=== PATIENT | male | born 1970 | race Hispanic/Latino ===

== ENCOUNTER 2016-05-19 21:42 | Emergency (ER) | payer OTHER ==
[~2016-05-19 21:42] MED LIST: ACET65TA OR; ADVI200C5 PO; AKWASOL OP; AKWASOL OU; ALBU17IN INH; AMBI5TAB PO; ASPI81TA85 PO; BACIOIN20 TOP; BENZ5GEL13 TOP; BENZ5GEL16 TOP; CIPR500T19 OR; COMBVENT INH; DOCU10ELUD PO; ECOT325T5 OR; EQ N TD; FISH500C PO; FOLI1TAB2 PO; FOLI1TAB86 PO; IBUP200C PO; KEPP500T6 PO; LIDO5DIS36 TD; MINI2CAP PO; MULTTAB4 PO; NICO14DI20 TD; NICO14DI3 TD; NICO21DI TD; NICO21DI5 TD; NO HISTORICAL MEDS; NORCOBULK PO; No Historical Meds; OXAZ15CA PO; PRAZ2CAP PO; THIA100T PO; THIA50CA PO; TRAZO50TA PO; TYLE325T5 PO; VENL37CA PO; VENL75CA PO; VITA100T2 PO; VITMTA PO; ZOLO25TA PO; antabuse OR; folate PO
--- NOTE | 2016-05-20 01:00 | REPUSA ---
CLINICAL HISTORY: Abnormal chest x-ray. TECHNIQUE: Multiple axial CT images were obtained through the thorax without IV contrast material. COMMENTS: Diffuse bilateral peripheral subpleural interstitial thickening. Scattered groundglass densities are noted in the mid and lower lung zones. There is no evidence of pleural or parenchymal-based mass. There are no pleural effusions. There is n o evidence of hilar or mediastinal lymphadenopathy. The heart and great vessels are within normal vazquez its. The visualized portions of the liver are of uniform attenuation without mass or defect. There is no i ntra or extrahepatic biliary ductal dilatation. The spleen is unremarkable. The visualized pancreas i s of normal contour and attenuation characteristics. There is no evidence of adrenal mass. The visual ized portions of the kidneys present no abnormalities. The bony structures are free of lytic or blastic lesions. IMPRESSION: Interstitial pulmonary disease/pulmonary fibrosis. Associated groundglass densities. Please evaluate to exclude a superimposed infection. Thank you for your kind referral of this patient.
--- NOTE | 2016-05-20 01:38 | EDDOCDS ---
Nurse's Notes [facility] Name: Galdino Ansari Age: 46 yrs Sex: Male : 1970 Arrival Date: 05/19/2016 Time: 21:42 Bed I5 / M5 Private MD: [facility] [place] Diagnosis: Shortness of breath;Pulmonary fibrosis, unspecified Presentation: 05/19 21:48 Presenting complaint: Patient states: difficulty breathing today. [facility], said that he has cancer in both lungs. here to get checked. Adult Sepsis Screening: The patient does not have new or worsening altered mentation. Patient's respiratory rate is less than 22. Systolic blood pressure is greater than 100. Patient has a qSOFA score of 0- Negative Sepsis Screen. Suicide/Homicide risk assessment- the patient denies having any suicidal and/or homicidal ideations and does not present with any other emotional, behavioral or mental health complaints. Status: Patient is not a flight service agent or dependent. Transition of care: patient was not received from another setting of care. 21:48 Method Of Arrival: Walkin/Carried/Asstd rs3 21:48 Acuity: ANNETTE Level 4 rs3 Triage Assessment: 21:55 General: Appears in no apparent distress. Pain: Denies pain. Location: right lateral rs3 posterior chest and left lateral posterior chest. HIV screening NA for this visit Offered previously. Respiratory: Onset: The symptoms/episode began/occurred gradually. Historical: - Allergies: Codeine Sulfate (Rash); - Home Meds: 1. Keppra 500 mg Oral tab 1 tab 2 times per day 2. prazosin 2 mg Oral cap 1 cap daily 3. trazodone 50 mg Oral tab 1 tab nightly 4. folic acid 1 mg Oral tab 1 tab once daily 5. indomethacin 50 mg Oral cap 1 cap 2 times per day 6. albuterol sulfate 90 mcg/actuation Inhl HFAA 2 puffs every 4 hours - PMHx: Anxiety; crushed R hand; Depression; PTSD; Seizure Disorder; - PSHx: none; - Social history: Smoking status: Patient uses tobacco products, light tobacco smoker. No barriers to communication noted, Speaks appropriately for age. - Family history: Not pertinent. - : The pt / caregiver states he / she is not on anticoagulants. Home medication list is obtained from the patient. - Exposure Risk Screening:: None identified. None identified. Screenin/21 01:35 Screening information is obtained from the patient. Fall risk: No risks identified. jmb Assistance ADL's: requires no assistance with activities of daily living. Abuse/DV Screen: The patient / caregiver reports he/she is: not in a situation that causes fear, pain or injury. Nutritional screening: No deficits noted. Advance Directives: Currently, there is no health care proxy. There is no active DNR order. There is no living will. There is no Power of Hi Lift Operator. home support is adequate. Assessment: 00:17 General: Appears in no apparent distress, Behavior is combative. Pain: Denies pain. jmb Neurological: Level of Consciousness is awake, alert, obeys commands, Oriented to person, place, time, Custodian Athletic Equipment are equal bilaterally Speech is normal, Facial symmetry appears normal, Facial symmetry: tongue is midline. Cardiovascular: Capillary refill < 3 seconds Heart tones present Pulses are all present. Rhythm is regular. Respiratory: Airway is patent Respiratory effort is even, unlabored, Respiratory pattern is regular, symmetrical, Breath sounds with wheezes inspiratory. GI: Abdomen is non- distended Bowel sounds present X 4 quads. Abd is soft and non tender X 4 quads. Derm: Skin is pink, warm & dry. Musculoskeletal: Range of motion intact in all extremities. 01:35 General:. General: Patient instructed on discharge instructions. Patient asked if there jmb were any questions regarding discharge, patient stated no. Patient signed discharge instructions. Patient discharged in stable condition.. Vital Signs: 05/19 21:44 BP 158 / 97; Pulse 96; Resp 20 S; Temp 99.0(O); Pulse Ox 95% on R/A; Weight 65.77 kg dd6 (R); Height 5 ft. 2 in. (157.48 cm) (R); 05/20 01:35 BP 148 / 88; Pulse 90; Resp 20; Temp 99.0(O); Pulse Ox 97% on R/A; Pain 0/10; jmb 05/19 21:44 Body Mass Index 26.52 (65.77 kg, 157.48 cm) dd6 Vitals: 05/19 21:44 Log In Time: May 19, 2016 at 21:42. dd6 ED Course: 21:43 Patient visited by José Miguel Wasserman PCA. dd6 21:43 Patient moved to Waiting dd6 21:44 [facility] is Private Physician. dd6 21:45 Patient moved to Pre RCE dd6 21:51 Triage Initiated rs3 23:10 Patient moved to Triage 1 cz 23:37 Jane Massey PA-C is PHCP. dt4 23:37 Jimmie Sheldon DO is Attending Physician. dt4 23:37 Patient visited by Jane Massey PA-C. dt4 05/20 00:05 Patient moved to I5 / M5 cz 00:18 Patient visited by Sagar Miranda RN. jmb 00:35 Patient visited by Sofya Arias LPN. cp1 00:46 [facility] Payment Agreement was scanned into [employer] and attached to record. hs2 01:03 Patient visited by Sofya Arias LPN. cp1 01:30 [facility] is Referral Physician. dt4 01:32 CT Chest Without Contrast Returned. EDMS 01:35 The patient / caregiver is instructed regarding the plan of care and ED course. jmb 01:35 No IV's were initiated during this patient's visit. No procedures done that require jmb assistance. Order Results: Radiology Order: CT Chest Without Contrast Test: CT Chest Without Contrast REASON FOR EXAMINATION: ABNORMAL CXR; ; CLINICAL HISTORY: Abnormal chest x-ray.; TECHNIQUE: Multiple axial CT images were obtained through the thorax without IV contrast material.; COMMENTS:; Diffuse bilateral peripheral subpleural interstitial thickening.; Scattered groundglass densities are noted in the mid and lower lung zones.; There is no evidence of pleural or parenchymal-based mass. There are no pleural effusions. There is n; o evidence of hilar or mediastinal lymphadenopathy. The heart and great vessels are within normal vazquez; its.; The visualized portions of the liver are of uniform attenuation without mass or defect. There is no i; ntra or extrahepatic biliary ductal dilatation. The spleen is unremarkable. The visualized pancreas i; s of normal contour and attenuation characteristics. There is no evidence of adrenal mass. The visual; ized portions of the kidneys present no abnormalities.; The bony structures are free of lytic or blastic lesions.; IMPRESSION:; Interstitial pulmonary disease/pulmonary fibrosis.; Associated groundglass densities. Please evaluate to exclude a superimposed infection.; Thank you for your kind referral of this patient.; ; ; Outcome: 01:30 Discharge ordered by Provider. dt4 01:35 Discharge Assessment: Patient awake, alert and oriented x 3. No cognitive and/or jmb functional deficits noted. Patient verbalized understanding of disposition instructions. Patient awake and alert. obeys commands, Oriented to person, place and time. Patient verbalized understanding of disposition instructions. Patient has no functional deficits. patient administered narcotics - no. The following High Risk Discharge criteria are identified: None. Discharged to home ambulatory. Condition: stable. Discharge instructions given to patient, Instructed on discharge instructions, follow up and referral plans. Demonstrated understanding of instructions, Pt was receptive of discharge instructions/ teaching. CT Study completed. Property sent home with patient. 01:37 Patient left the ED. tika Signatures: Dispatcher [employer] EDMS Eldon Salomon, RN RN cz José Miguel Wasserman, UPPER LEATHER CUTTER UPPER LEATHER CUTTER dd6 Nati Luis RN RN rs3 Sofya Arias,ESL PROFESSOR ESL PROFESSOR cp1 Sagar Miranda RN RN Jane Monet, PAShelly PA-Roxana dt4 Tamica Kunz, Reg Reg hs2 MTDD
--- NOTE | 2016-05-20 01:38 | EDDOCDS ---
Physician Documentation [facility] Name: Galdino Ansari Age: 46 yrs Sex: Male : 1970 Arrival Date: 05/19/2016 Time: 21:42 Bed I5 / M5 Private MD: IAELIANE [place] Disposition: 05/20/16 01:30 Discharged to Home/Self Care. Impression: Shortness of breath, Pulmonary fibrosis, unspecified. - Condition is Stable. - Discharge Instructions: Shortness of Breath. - Medication Reconciliation, Local Pharmacy Hours form. - Follow up: Emergency Department; When: As needed; Reason: Worsening of conditions. [facility] [place]; When: Call to arrange an appointment; Reason: Wound/Symptom Recheck, Recheck today's complaints, Continuance of care. - Problem is new. - Symptoms are unchanged. Historical: - Allergies: Codeine Sulfate (Rash); - Home Meds: 1. Keppra 500 mg Oral tab 1 tab 2 times per day 2. prazosin 2 mg Oral cap 1 cap daily 3. trazodone 50 mg Oral tab 1 tab nightly 4. folic acid 1 mg Oral tab 1 tab once daily 5. indomethacin 50 mg Oral cap 1 cap 2 times per day 6. albuterol sulfate 90 mcg/actuation Inhl HFAA 2 puffs every 4 hours - PMHx: Anxiety; crushed R hand; Depression; PTSD; Seizure Disorder; - PSHx: none; - Social history: Smoking status: Patient uses tobacco products, light tobacco smoker. No barriers to communication noted, Speaks appropriately for age. - Family history: Not pertinent. - : The pt / caregiver states he / she is not on anticoagulants. Home medication list is obtained from the patient. - Exposure Risk Screening:: None identified. None identified. Vital Signs: 05/19 21:44 BP 158 / 97; Pulse 96; Resp 20 S; Temp 99.0(O); Pulse Ox 95% on R/A; Weight 65.77 kg / dd6 145 lbs (R); Height 5 ft. 2 in. (157.48 cm) (R); 05/20 01:35 BP 148 / 88; Pulse 90; Resp 20; Temp 99.0(O); Pulse Ox 97% on R/A; Pain 0/10; jmb 05/19 21:44 Body Mass Index 26.52 (65.77 kg, 157.48 cm) dd6 MDM: 05/19 23:57 Financial registration complete. hs2 05/20 00:02 Chest, 2 View (pa\E\lat) Ordered. EDMS 00:27 CT Chest Without Contrast Ordered. EDMS 00:46 [place] [place] Agreement was scanned into [employer] and attached to record. hs2 Signatures: Dispatcher [employer] EDPA Nati LuisRN RN rs3 Sagar MirandaRN RN juan albertob Jane Massey, PADonaldoC PA-C dt4 Tamica Kunz, Reg Reg hs2 The chart was reviewed and I authenticate all verbal orders and agree with the evaluation and treatment provided.Attachments: 00:46 [facility] [place] hs2 MTDD
--- NOTE | 2016-05-20 11:24 | REP ---
PA and lateral chest radiograph 05/20/2016 Indication: Abnormal chest radiograph at [place]; possible mass? Comparison: PA and lateral chest 12/18/2014, CT chest 12/05/12 Findings: Cardiomediastinal silhouette is of normal size. There is mild hyperinflation and flattening of diaphragms and that with COPD. Chronic reticulo interstitial infiltrates are seen bilaterally with some evidence of peripheral honeycomb pattern in the lung base, with mild progression. Bones and soft tissues within normal limits. Impression: COPD Chronic-appearing interstitial fibrosis with lower lobe and peripheral predominance and honeycomb appearance in lung bases. There is mild progression when compared with prior chest radiograph 12/18/2014. Pulmonary medicine consultation may be considered Signed by Ailin Marroquin MD 05/20/2016 11:15 A
--- NOTE | 2016-05-22 02:38 | EDDOCDS ---
Physician Documentation [facility] Name: Galdino Ansari Age: 46 yrs Sex: Male : 1970 Arrival Date: 05/19/2016 Time: 21:42 Bed I5 / M5 Private MD: MOELIANE [place] Disposition: 05/20/16 01:30 Discharged to Home/Self Care. Impression: Shortness of breath, Pulmonary fibrosis, unspecified. - Condition is Stable. - Discharge Instructions: Shortness of Breath. - Medication Reconciliation, Local Pharmacy Hours form. - Follow up: Emergency Department; When: As needed; Reason: Worsening of conditions. Follow [facility]: [facility] [place]; When: Call to arrange an appointment; Reason: Wound/Symptom Recheck, Recheck today's complaints, Continuance of care. - Problem is new. - Symptoms are unchanged. Historical: - Allergies: Codeine Sulfate (Rash); - Home Meds: 1. Keppra 500 mg Oral tab 1 tab 2 times per day 2. prazosin 2 mg Oral cap 1 cap daily 3. trazodone 50 mg Oral tab 1 tab nightly 4. folic acid 1 mg Oral tab 1 tab once daily 5. indomethacin 50 mg Oral cap 1 cap 2 times per day 6. albuterol sulfate 90 mcg/actuation Inhl HFAA 2 puffs every 4 hours - PMHx: Anxiety; crushed R hand; Depression; PTSD; Seizure Disorder; - PSHx: none; - Social history: Smoking status: Patient uses tobacco products, light tobacco smoker. No barriers to communication noted, Speaks appropriately for age. - Family history: Not pertinent. - : The pt / caregiver states he / she is not on anticoagulants. Home medication list is obtained from the patient. - Exposure Risk Screening:: None identified. None identified. Vital Signs: 05/19 21:44 BP 158 / 97; Pulse 96; Resp 20 S; Temp 99.0(O); Pulse Ox 95% on R/A; Weight 65.77 kg / dd6 145 lbs (R); Height 5 ft. 2 in. (157.48 cm) (R); 05/20 01:35 BP 148 / 88; Pulse 90; Resp 20; Temp 99.0(O); Pulse Ox 97% on R/A; Pain 0/10; jmb 05/19 21:44 Body Mass Index 26.52 (65.77 kg, 157.48 cm) dd6 MDM: 05/19 23:57 Financial registration complete. hs2 05/20 00:02 Chest, 2 View (pa\E\lat) Ordered. EDMS 00:27 CT Chest Without Contrast Ordered. EDMS 00:46 [facility] [place] was scanned into [employer] and attached to record. hs2 12:10 T-Sheet-- Draft Copy was scanned into [employer] and attached to record. gb 12:10 Radiology Report was scanned into [employer] and attached to record. gb Signatures: Dispatcher [employer] EDMS Judith Lewis, Reg Reg gb Nati LuisRN RN rs3 Sagar MirandaRN RN Jane Monet, PA-C PA-C dt4 Tamica Kunz, Reg Reg hs2 The chart was reviewed and I authenticate all verbal orders and agree with the evaluation and treatment provided.Attachments: 00:46 [facility] [place] hs2 12:10 T-Sheet-- Draft Copy gb Chart Complete MTDD
--- NOTE | 2016-05-22 02:38 | EDDOCDS ---
Physician Documentation [facility] Name: Galdino Ansari Age: 46 yrs Sex: Male : 1970 Arrival Date: 05/19/2016 Time: 21:42 Bed I5 / M5 Private MD: W[place]ELIANE [place] Disposition: 05/20/16 01:30 Discharged to Home/Self Care. Impression: Shortness of breath, Pulmonary fibrosis, unspecified. - Condition is Stable. - Discharge Instructions: Shortness of Breath. - Medication Reconciliation, Local Pharmacy Hours form. - Follow up: Emergency Department; When: As needed; Reason: Worsening of conditions. [facility] [place]; When: Call to arrange an appointment; Reason: Wound/Symptom Recheck, Recheck today's complaints, Continuance of care. - Problem is new. - Symptoms are unchanged. Historical: - Allergies: Codeine Sulfate (Rash); - Home Meds: 1. Keppra 500 mg Oral tab 1 tab 2 times per day 2. prazosin 2 mg Oral cap 1 cap daily 3. trazodone 50 mg Oral tab 1 tab nightly 4. folic acid 1 mg Oral tab 1 tab once daily 5. indomethacin 50 mg Oral cap 1 cap 2 times per day 6. albuterol sulfate 90 mcg/actuation Inhl HFAA 2 puffs every 4 hours - PMHx: Anxiety; crushed R hand; Depression; PTSD; Seizure Disorder; - PSHx: none; - Social history: Smoking status: Patient uses tobacco products, light tobacco smoker. No barriers to communication noted, Speaks appropriately for age. - Family history: Not pertinent. - : The pt / caregiver states he / she is not on anticoagulants. Home medication list is obtained from the patient. - Exposure Risk Screening:: None identified. None identified. Vital Signs: 05/19 21:44 BP 158 / 97; Pulse 96; Resp 20 S; Temp 99.0(O); Pulse Ox 95% on R/A; Weight 65.77 kg / dd6 145 lbs (R); Height 5 ft. 2 in. (157.48 cm) (R); 05/20 01:35 BP 148 / 88; Pulse 90; Resp 20; Temp 99.0(O); Pulse Ox 97% on R/A; Pain 0/10; jmb 05/19 21:44 Body Mass Index 26.52 (65.77 kg, 157.48 cm) dd6 MDM: 05/19 23:57 Financial registration complete. hs2 05/20 00:02 Chest, 2 View (pa\E\lat) Ordered. EDMS 00:27 CT Chest Without Contrast Ordered. EDMS 00:46 [facility] [place] was scanned into [employer] and attached to record. hs2 12:10 T-Sheet-- Draft Copy was scanned into [employer] and attached to record. gb 12:10 Radiology Report was scanned into [employer] and attached to record. gb Signatures: Dispatcher [employer] EDMS Judith Lewis, Reg Reg gb Nati LuisRN RN rs3 Sagar MirandaRN RN Jane Monet, PA-C PA-C dt4 Tamica Kunz, Reg Reg hs2 The chart was reviewed and I authenticate all verbal orders and agree with the evaluation and treatment provided.Attachments: 00:46 [facility] [place] hs2 12:10 T-Sheet-- Draft Copy gb Chart Complete MTDD
--- NOTE | 2016-05-22 02:38 | EDDOCDS ---
Nurse's Notes [facility] Name: Galdino Ansari Age: 46 yrs Sex: Male : 1970 Arrival Date: 05/19/2016 Time: 21:42 Bed I5 / M5 Private MD: [facility] [place] Diagnosis: Shortness of breath;Pulmonary fibrosis, unspecified Presentation: 05/19 21:48 Presenting complaint: Patient states: difficulty breathing today. [facility], said that he has cancer in both lungs. here to get checked. Adult Sepsis Screening: The patient does not have new or worsening altered mentation. Patient's respiratory rate is less than 22. Systolic blood pressure is greater than 100. Patient has a qSOFA score of 0- Negative Sepsis Screen. Suicide/Homicide risk assessment- the patient denies having any suicidal and/or homicidal ideations and does not present with any other emotional, behavioral or mental health complaints. Status: Patient is not a service operator or dependent. Transition of care: patient was not received from another setting of care. 21:48 Method Of Arrival: Walkin/Carried/Asstd rs3 21:48 Acuity: ANNETTE Level 4 rs3 Triage Assessment: 21:55 General: Appears in no apparent distress. Pain: Denies pain. Location: right lateral rs3 posterior chest and left lateral posterior chest. HIV screening NA for this visit Offered previously. Respiratory: Onset: The symptoms/episode began/occurred gradually. Historical: - Allergies: Codeine Sulfate (Rash); - Home Meds: 1. Keppra 500 mg Oral tab 1 tab 2 times per day 2. prazosin 2 mg Oral cap 1 cap daily 3. trazodone 50 mg Oral tab 1 tab nightly 4. folic acid 1 mg Oral tab 1 tab once daily 5. indomethacin 50 mg Oral cap 1 cap 2 times per day 6. albuterol sulfate 90 mcg/actuation Inhl HFAA 2 puffs every 4 hours - PMHx: Anxiety; crushed R hand; Depression; PTSD; Seizure Disorder; - PSHx: none; - Social history: Smoking status: Patient uses tobacco products, light tobacco smoker. No barriers to communication noted, Speaks appropriately for age. - Family history: Not pertinent. - : The pt / caregiver states he / she is not on anticoagulants. Home medication list is obtained from the patient. - Exposure Risk Screening:: None identified. None identified. Screenin/21 01:35 Screening information is obtained from the patient. Fall risk: No risks identified. jmb Assistance ADL's: requires no assistance with activities of daily living. Abuse/DV Screen: The patient / caregiver reports he/she is: not in a situation that causes fear, pain or injury. Nutritional screening: No deficits noted. Advance Directives: Currently, there is no health care proxy. There is no active DNR order. There is no living will. There is no Power of Refrigeration [place]. home support is adequate. Assessment: 00:17 General: Appears in no apparent distress, Behavior is combative. Pain: Denies pain. jmb Neurological: Level of Consciousness is awake, alert, obeys commands, Oriented to person, place, time, Hopper Operator are equal bilaterally Speech is normal, Facial symmetry appears normal, Facial symmetry: tongue is midline. Cardiovascular: Capillary refill < 3 seconds Heart tones present Pulses are all present. Rhythm is regular. Respiratory: Airway is patent Respiratory effort is even, unlabored, Respiratory pattern is regular, symmetrical, Breath sounds with wheezes inspiratory. GI: Abdomen is non- distended Bowel sounds present X 4 quads. Abd is soft and non tender X 4 quads. Derm: Skin is pink, warm & dry. Musculoskeletal: Range of motion intact in all extremities. 01:35 General:. General: Patient instructed on discharge instructions. Patient asked if there jmb were any questions regarding discharge, patient stated no. Patient signed discharge instructions. Patient discharged in stable condition.. Vital Signs: 05/19 21:44 BP 158 / 97; Pulse 96; Resp 20 S; Temp 99.0(O); Pulse Ox 95% on R/A; Weight 65.77 kg dd6 (R); Height 5 ft. 2 in. (157.48 cm) (R); 05/20 01:35 BP 148 / 88; Pulse 90; Resp 20; Temp 99.0(O); Pulse Ox 97% on R/A; Pain 0/10; jmb 05/19 21:44 Body Mass Index 26.52 (65.77 kg, 157.48 cm) dd6 Vitals: 05/19 21:44 Log In Time: May 19, 2016 at 21:42. dd6 ED Course: 21:43 Patient visited by José Miguel Wasserman PCA. dd6 21:43 Patient moved to Waiting dd6 21:44 [employer] is Private Physician. dd6 21:45 Patient moved to Pre RCE dd6 21:51 Triage Initiated rs3 23:10 Patient moved to Triage 1 cz 23:37 Jane Massey PA-C is PHCP. dt4 23:37 Jimmie Sheldon DO is Attending Physician. dt4 23:37 Patient visited by Jane Massey PA-C. dt4 05/20 00:05 Patient moved to I5 / M5 cz 00:18 Patient visited by Sagar Miranda RN. jmb 00:35 Patient visited by Sofya Arias LPN. cp1 00:46 [facility] Payment Agreement was scanned into [employer] and attached to record. hs2 01:03 Patient visited by Sofya Arias LPN. cp1 01:30 [employer] is Referral Physician. dt4 01:32 CT Chest Without Contrast Returned. EDMS 01:35 The patient / caregiver is instructed regarding the plan of care and ED course. jmb 01:35 No IV's were initiated during this patient's visit. No procedures done that require jmb assistance. 11:34 Chest, 2 View (pa\E\lat) Returned. EDMS 12:10 T-Sheet-- Draft Copy was scanned into [employer] and attached to record. gb 12:10 Radiology Report was scanned into [employer] and attached to record. gb Order Results: Radiology Order: Chest, 2 View (pa\E\lat) Test: Chest, 2 View (pa\E\lat) REASON FOR EXAMINATION: ABNORMAL CXR AT [place], ?MASS; PA and lateral chest radiograph 05/20/2016; ; Indication: Abnormal chest radiograph at [place]; possible mass?; ; Comparison: PA and lateral chest 12/18/2014, CT chest 12/05/12; ; Findings: Cardiomediastinal silhouette is of normal size. There is mild; hyperinflation and flattening of diaphragms and that with COPD. Chronic reticulo; interstitial infiltrates are seen bilaterally with some evidence of peripheral; honeycomb pattern in the lung base, with mild progression.; ; Bones and soft tissues within normal limits.; ; Impression:; ; COPD; ; Chronic-appearing interstitial fibrosis with lower lobe and peripheral; predominance and honeycomb appearance in lung bases. There is mild progression; when compared with prior chest radiograph 12/18/2014. Pulmonary medicine; consultation may be considered; ; ; ; ; Signed by; Ailin Marroquin MD 05/20/2016 11:15 A; Radiology Order: CT Chest Without Contrast Test: CT Chest Without Contrast REASON FOR EXAMINATION: ABNORMAL CXR; ; CLINICAL HISTORY: Abnormal chest x-ray.; TECHNIQUE: Multiple axial CT images were obtained through the thorax without IV contrast material.; COMMENTS:; Diffuse bilateral peripheral subpleural interstitial thickening.; Scattered groundglass densities are noted in the mid and lower lung zones.; There is no evidence of pleural or parenchymal-based mass. There are no pleural effusions. There is n; o evidence of hilar or mediastinal lymphadenopathy. The heart and great vessels are within normal vazquez; its.; The visualized portions of the liver are of uniform attenuation without mass or defect. There is no i; ntra or extrahepatic biliary ductal dilatation. The spleen is unremarkable. The visualized pancreas i; s of normal contour and attenuation characteristics. There is no evidence of adrenal mass. The visual; ized portions of the kidneys present no abnormalities.; The bony structures are free of lytic or blastic lesions.; IMPRESSION:; Interstitial pulmonary disease/pulmonary fibrosis.; Associated groundglass densities. Please evaluate to exclude a superimposed infection.; Thank you for your kind referral of this patient.; ; ; Outcome: 01:30 Discharge ordered by Provider. dt4 01:35 Discharge Assessment: Patient awake, alert and oriented x 3. No cognitive and/or jmb functional deficits noted. Patient verbalized understanding of disposition instructions. Patient awake and alert. obeys commands, Oriented to person, place and time. Patient verbalized understanding of disposition instructions. Patient has no functional deficits. patient administered narcotics - no. The following High Risk Discharge criteria are identified: None. Discharged to home ambulatory. Condition: stable. Discharge instructions given to patient, Instructed on discharge instructions, follow up and referral plans. Demonstrated understanding of instructions, Pt was receptive of discharge instructions/ teaching. CT Study completed. Property sent home with patient. 01:37 Patient left the ED. jmb Signatures: Dispatcher [employer] Eldon Bates, RN RN cz Joshua, Judith, Reg Reg gb José Miguel Wasserman, SERVICE OR WORK DISPATCHER CHIEF SERVICE OR WORK DISPATCHER CHIEF dd6 Nati Luis,CHIQUITA RN rs3 Sofya Arias,INDUSTRIAL GAS SERVICER SUPERVISOR INDUSTRIAL GAS SERVICER SUPERVISOR cp1 Sagar Miranda,CHIUQITA RN Jane Monet, PA-C PA-C dt4 Tamica Kunz, Reg Reg hs2 Chart Complete MTDD
--- NOTE | 2016-05-23 20:36 | EDDOCDS ---
Nurse's Notes [facility] Name: Galdino Ansari Age: 46 yrs Sex: Male : 1970 Arrival Date: 05/19/2016 Time: 21:42 Bed I5 / M5 Private MD: [facility] [place] Diagnosis: Shortness of breath;Pulmonary fibrosis, unspecified Presentation: 05/19 21:48 Presenting complaint: Patient states: difficulty breathing today. [facility], said that he has cancer in both lungs. here to get checked. Adult Sepsis Screening: The patient does not have new or worsening altered mentation. Patient's respiratory rate is less than 22. Systolic blood pressure is greater than 100. Patient has a qSOFA score of 0- Negative Sepsis Screen. Suicide/Homicide risk assessment- the patient denies having any suicidal and/or homicidal ideations and does not present with any other emotional, behavioral or mental health complaints. Status: Patient is not a food service counter clerk or dependent. Transition of care: patient was not received from another setting of care. 21:48 Method Of Arrival: Walkin/Carried/Asstd rs3 21:48 Acuity: ANNETTE Level 4 rs3 Triage Assessment: 21:55 General: Appears in no apparent distress. Pain: Denies pain. Location: right lateral rs3 posterior chest and left lateral posterior chest. HIV screening NA for this visit Offered previously. Respiratory: Onset: The symptoms/episode began/occurred gradually. Historical: - Allergies: Codeine Sulfate (Rash); - Home Meds: 1. Keppra 500 mg Oral tab 1 tab 2 times per day 2. prazosin 2 mg Oral cap 1 cap daily 3. trazodone 50 mg Oral tab 1 tab nightly 4. folic acid 1 mg Oral tab 1 tab once daily 5. indomethacin 50 mg Oral cap 1 cap 2 times per day 6. albuterol sulfate 90 mcg/actuation Inhl HFAA 2 puffs every 4 hours - PMHx: Anxiety; crushed R hand; Depression; PTSD; Seizure Disorder; - PSHx: none; - Social history: Smoking status: Patient uses tobacco products, light tobacco smoker. No barriers to communication noted, Speaks appropriately for age. - Family history: Not pertinent. - : The pt / caregiver states he / she is not on anticoagulants. Home medication list is obtained from the patient. - Exposure Risk Screening:: None identified. None identified. Screenin/21 01:35 Screening information is obtained from the patient. Fall risk: No risks identified. jmb Assistance ADL's: requires no assistance with activities of daily living. Abuse/DV Screen: The patient / caregiver reports he/she is: not in a situation that causes fear, pain or injury. Nutritional screening: No deficits noted. Advance Directives: Currently, there is no health care proxy. There is no active DNR order. There is no living will. There is no Power of Airline Flight Attendant. home support is adequate. Assessment: 00:17 General: Appears in no apparent distress, Behavior is combative. Pain: Denies pain. jmb Neurological: Level of Consciousness is awake, alert, obeys commands, Oriented to person, place, time, Kettle Hand are equal bilaterally Speech is normal, Facial symmetry appears normal, Facial symmetry: tongue is midline. Cardiovascular: Capillary refill < 3 seconds Heart tones present Pulses are all present. Rhythm is regular. Respiratory: Airway is patent Respiratory effort is even, unlabored, Respiratory pattern is regular, symmetrical, Breath sounds with wheezes inspiratory. GI: Abdomen is non- distended Bowel sounds present X 4 quads. Abd is soft and non tender X 4 quads. Derm: Skin is pink, warm & dry. Musculoskeletal: Range of motion intact in all extremities. 01:35 General:. General: Patient instructed on discharge instructions. Patient asked if there jmb were any questions regarding discharge, patient stated no. Patient signed discharge instructions. Patient discharged in stable condition.. Vital Signs: 05/19 21:44 BP 158 / 97; Pulse 96; Resp 20 S; Temp 99.0(O); Pulse Ox 95% on R/A; Weight 65.77 kg dd6 (R); Height 5 ft. 2 in. (157.48 cm) (R); 05/20 01:35 BP 148 / 88; Pulse 90; Resp 20; Temp 99.0(O); Pulse Ox 97% on R/A; Pain 0/10; jmb 05/19 21:44 Body Mass Index 26.52 (65.77 kg, 157.48 cm) dd6 Vitals: 05/19 21:44 Log In Time: May 19, 2016 at 21:42. dd6 ED Course: 21:43 Patient visited by José Miguel Wasserman PCA. dd6 21:43 Patient moved to Waiting dd6 21:44 [facility] is Private Physician. dd6 21:45 Patient moved to Pre RCE dd6 21:51 Triage Initiated rs3 23:10 Patient moved to Triage 1 cz 23:37 Jane Massey PA-C is PHCP. dt4 23:37 Jimmie Sheldon DO is Attending Physician. dt4 23:37 Patient visited by Jane Massey PA-C. dt4 05/20 00:05 Patient moved to I5 / M5 cz 00:18 Patient visited by Sagar Miranda RN. jmb 00:35 Patient visited by Sofya Arias LPN. cp1 00:46 [facility] Payment Agreement was scanned into [employer] and attached to record. hs2 01:03 Patient visited by Sofya Arias LPN. cp1 01:30 [facility] is Referral Physician. dt4 01:32 CT Chest Without Contrast Returned. EDMS 01:35 The patient / caregiver is instructed regarding the plan of care and ED course. jmb 01:35 No IV's were initiated during this patient's visit. No procedures done that require jmb assistance. 11:34 Chest, 2 View (pa\E\lat) Returned. EDMS 12:10 T-Sheet-- Draft Copy was scanned into [employer] and attached to record. gb 12:10 Radiology Report was scanned into [employer] and attached to record. gb Order Results: Radiology Order: Chest, 2 View (pa\E\lat) Test: Chest, 2 View (pa\E\lat) REASON FOR EXAMINATION: ABNORMAL CXR AT [place], ?MASS; PA and lateral chest radiograph 05/20/2016; ; Indication: Abnormal chest radiograph at [place]; possible mass?; ; Comparison: [place] and lateral chest 12/18/2014, CT chest 12/05/12; ; Findings: Cardiomediastinal silhouette is of normal size. There is mild; hyperinflation and flattening of diaphragms and that with COPD. Chronic reticulo; interstitial infiltrates are seen bilaterally with some evidence of peripheral; honeycomb pattern in the lung base, with mild progression.; ; Bones and soft tissues within normal limits.; ; Impression:; ; COPD; ; Chronic-appearing interstitial fibrosis with lower lobe and peripheral; predominance and honeycomb appearance in lung bases. There is mild progression; when compared with prior chest radiograph 12/18/2014. Pulmonary medicine; consultation may be considered; ; ; ; ; Signed by; Ailin Marroquin MD 05/20/2016 11:15 A; Radiology Order: CT Chest Without Contrast Test: CT Chest Without Contrast REASON FOR EXAMINATION: ABNORMAL CXR; ; CLINICAL HISTORY: Abnormal chest x-ray.; TECHNIQUE: Multiple axial CT images were obtained through the thorax without IV contrast material.; COMMENTS:; Diffuse bilateral peripheral subpleural interstitial thickening.; Scattered groundglass densities are noted in the mid and lower lung zones.; There is no evidence of pleural or parenchymal-based mass. There are no pleural effusions. There is n; o evidence of hilar or mediastinal lymphadenopathy. The heart and great vessels are within normal vazquez; its.; The visualized portions of the liver are of uniform attenuation without mass or defect. There is no i; ntra or extrahepatic biliary ductal dilatation. The spleen is unremarkable. The visualized pancreas i; s of normal contour and attenuation characteristics. There is no evidence of adrenal mass. The visual; ized portions of the kidneys present no abnormalities.; The bony structures are free of lytic or blastic lesions.; IMPRESSION:; Interstitial pulmonary disease/pulmonary fibrosis.; Associated groundglass densities. Please evaluate to exclude a superimposed infection.; Thank you for your kind referral of this patient.; ; ; Outcome: 01:30 Discharge ordered by Provider. dt4 01:35 Discharge Assessment: Patient awake, alert and oriented x 3. No cognitive and/or jmb functional deficits noted. Patient verbalized understanding of disposition instructions. Patient awake and alert. obeys commands, Oriented to person, place and time. Patient verbalized understanding of disposition instructions. Patient has no functional deficits. patient administered narcotics - no. The following High Risk Discharge criteria are identified: None. Discharged to home ambulatory. Condition: stable. Discharge instructions given to patient, Instructed on discharge instructions, follow up and referral plans. Demonstrated understanding of instructions, Pt was receptive of discharge instructions/ teaching. CT Study completed. Property sent home with patient. 01:37 Patient left the ED. jmb Signatures: Dispatcher [employer] Eldon Bates, RN RN cz Joshua, Judith, Reg Reg gb José Miguel Wasserman, AIRLINE RESERVATIONIST AIRLINE RESERVATIONIST dd6 Nati Luis,CHIQUITA RN rs3 Sofya Arias,INSTALLATION AND SERVICE TECHNICIAN INSTALLATION AND SERVICE TECHNICIAN cp1 Sagar Miranda,CHIQUITA RN Jane Monet, PA-C PA-C dt4 Tamica Kunz, Reg Reg hs2 MTDD
--- NOTE | 2016-05-23 20:36 | EDDOCDS ---
Physician Documentation [facility] Name: Galdino Ansari Age: 46 yrs Sex: Male : 1970 Arrival Date: 05/19/2016 Time: 21:42 Bed I5 / M5 Private MD: MSELIANE [place] Disposition: 05/20/16 01:30 Discharged to Home/Self Care. Impression: Shortness of breath, Pulmonary fibrosis, unspecified. - Condition is Stable. - Discharge Instructions: Shortness of Breath. - Medication Reconciliation, Local Pharmacy Hours form. - Follow up: Emergency Department; When: As needed; Reason: Worsening of conditions. Follow [facility]: [facility] [place]; When: Call to arrange an appointment; Reason: Wound/Symptom Recheck, Recheck today's complaints, Continuance of care. - Problem is new. - Symptoms are unchanged. Historical: - Allergies: Codeine Sulfate (Rash); - Home Meds: 1. Keppra 500 mg Oral tab 1 tab 2 times per day 2. prazosin 2 mg Oral cap 1 cap daily 3. trazodone 50 mg Oral tab 1 tab nightly 4. folic acid 1 mg Oral tab 1 tab once daily 5. indomethacin 50 mg Oral cap 1 cap 2 times per day 6. albuterol sulfate 90 mcg/actuation Inhl HFAA 2 puffs every 4 hours - PMHx: Anxiety; crushed R hand; Depression; PTSD; Seizure Disorder; - PSHx: none; - Social history: Smoking status: Patient uses tobacco products, light tobacco smoker. No barriers to communication noted, Speaks appropriately for age. - Family history: Not pertinent. - : The pt / caregiver states he / she is not on anticoagulants. Home medication list is obtained from the patient. - Exposure Risk Screening:: None identified. None identified. Vital Signs: 05/19 21:44 BP 158 / 97; Pulse 96; Resp 20 S; Temp 99.0(O); Pulse Ox 95% on R/A; Weight 65.77 kg / dd6 145 lbs (R); Height 5 ft. 2 in. (157.48 cm) (R); 05/20 01:35 BP 148 / 88; Pulse 90; Resp 20; Temp 99.0(O); Pulse Ox 97% on R/A; Pain 0/10; jmb 05/19 21:44 Body Mass Index 26.52 (65.77 kg, 157.48 cm) dd6 MDM: 05/19 23:57 Financial registration complete. hs2 05/20 00:02 Chest, 2 View (pa\E\lat) Ordered. EDMS 00:27 CT Chest Without Contrast Ordered. EDMS 00:46 [facility] Payment Agreement was scanned into [employer] and attached to record. hs2 12:10 T-Sheet-- Draft Copy was scanned into [employer] and attached to record. gb 12:10 Radiology Report was scanned into [employer] and attached to record. gb Addendum: 05/23/2016 20:35 Radiology Callback: Radiology results faxed to primary care physician/provider. [facility] faxed formal report of cxr for fu mlg. Signatures: Dispatcher [employer] EDPR Rula Lobato MD MD ml Judith Lewis, Reg Reg gb Nati Luis RN RN rs3 Sagar Miranda RN RN jmb Tschudi, Diane, PA-C PA-C dt4 Tamica Kunz, Reg Reg hs2 The chart was reviewed and I authenticate all verbal orders and agree with the evaluation and treatment provided.Attachments: 05/20 00:46 [facility] Payment Agreement hs2 12:10 T-Sheet-- Draft Copy gb MTDD
--- NOTE | 2016-05-23 20:36 | EDDOCDS ---
Physician Documentation [facility] Name: Galdino Ansari Age: 46 yrs Sex: Male : 1970 Arrival Date: 05/19/2016 Time: 21:42 Bed I5 / M5 Private MD: ALELIANE [place] Disposition: 05/20/16 01:30 Discharged to Home/Self Care. Impression: Shortness of breath, Pulmonary fibrosis, unspecified. - Condition is Stable. - Discharge Instructions: Shortness of Breath. - Medication Reconciliation, Local Pharmacy Hours form. - Follow up: Emergency Department; When: As needed; Reason: Worsening of conditions. Follow up: [facility] [place]; When: Call to arrange an appointment; Reason: Wound/Symptom Recheck, Recheck today's complaints, Continuance of care. - Problem is new. - Symptoms are unchanged. Historical: - Allergies: Codeine Sulfate (Rash); - Home Meds: 1. Keppra 500 mg Oral tab 1 tab 2 times per day 2. prazosin 2 mg Oral cap 1 cap daily 3. trazodone 50 mg Oral tab 1 tab nightly 4. folic acid 1 mg Oral tab 1 tab once daily 5. indomethacin 50 mg Oral cap 1 cap 2 times per day 6. albuterol sulfate 90 mcg/actuation Inhl HFAA 2 puffs every 4 hours - PMHx: Anxiety; crushed R hand; Depression; PTSD; Seizure Disorder; - PSHx: none; - Social history: Smoking status: Patient uses tobacco products, light tobacco smoker. No barriers to communication noted, Speaks appropriately for age. - Family history: Not pertinent. - : The pt / caregiver states he / she is not on anticoagulants. Home medication list is obtained from the patient. - Exposure Risk Screening:: None identified. None identified. Vital Signs: 05/19 21:44 BP 158 / 97; Pulse 96; Resp 20 S; Temp 99.0(O); Pulse Ox 95% on R/A; Weight 65.77 kg / dd6 145 lbs (R); Height 5 ft. 2 in. (157.48 cm) (R); 05/20 01:35 BP 148 / 88; Pulse 90; Resp 20; Temp 99.0(O); Pulse Ox 97% on R/A; Pain 0/10; jmb 05/19 21:44 Body Mass Index 26.52 (65.77 kg, 157.48 cm) dd6 MDM: 05/19 23:57 Financial registration complete. hs2 05/20 00:02 Chest, 2 View (pa\E\lat) Ordered. EDMS 00:27 CT Chest Without Contrast Ordered. EDMS 00:46 [facility] Payment Agreement was scanned into [employer] and attached to record. hs2 12:10 T-Sheet-- Draft Copy was scanned into [employer] and attached to record. gb 12:10 Radiology Report was scanned into [employer] and attached to record. gb Addendum: 05/23/2016 20:35 Radiology Callback: Radiology results faxed to primary care physician/provider. [facility] faxed formal report of cxr for fu mlg. Signatures: Dispatcher [employer] EDAK Rula Lobato MD MD ml Judith Lewis, Reg Reg gb Nati Luis RN RN rs3 Sagar Miranda RN RN jmb Tschudi, Diane, PA-C PA-C dt4 Tamica Kunz, Reg Reg hs2 The chart was reviewed and I authenticate all verbal orders and agree with the evaluation and treatment provided.Attachments: 05/20 00:46 [facility] Payment Agreement hs2 12:10 T-Sheet-- Draft Copy gb MTDD
--- NOTE | 2016-05-23 20:37 | EDDOCDS ---
Physician Documentation [facility] Name: Galdino Ansari Age: 46 yrs Sex: Male : 1970 Arrival Date: 05/19/2016 Time: 21:42 Bed I5 / M5 Private MD: MDELIANE [place] Disposition: 05/20/16 01:30 Discharged to Home/Self Care. Impression: Shortness of breath, Pulmonary fibrosis, unspecified. - Condition is Stable. - Discharge Instructions: Shortness of Breath. - Medication Reconciliation, Local Pharmacy Hours form. - Follow up: Emergency Department; When: As needed; Reason: Worsening of conditions. [facility] [place]; When: Call to arrange an appointment; Reason: Wound/Symptom Recheck, Recheck today's complaints, Continuance of care. - Problem is new. - Symptoms are unchanged. Historical: - Allergies: Codeine Sulfate (Rash); - Home Meds: 1. Keppra 500 mg Oral tab 1 tab 2 times per day 2. prazosin 2 mg Oral cap 1 cap daily 3. trazodone 50 mg Oral tab 1 tab nightly 4. folic acid 1 mg Oral tab 1 tab once daily 5. indomethacin 50 mg Oral cap 1 cap 2 times per day 6. albuterol sulfate 90 mcg/actuation Inhl HFAA 2 puffs every 4 hours - PMHx: Anxiety; crushed R hand; Depression; PTSD; Seizure Disorder; - PSHx: none; - Social history: Smoking status: Patient uses tobacco products, light tobacco smoker. No barriers to communication noted, Speaks appropriately for age. - Family history: Not pertinent. - : The pt / caregiver states he / she is not on anticoagulants. Home medication list is obtained from the patient. - Exposure Risk Screening:: None identified. None identified. Vital Signs: 05/19 21:44 BP 158 / 97; Pulse 96; Resp 20 S; Temp 99.0(O); Pulse Ox 95% on R/A; Weight 65.77 kg / dd6 145 lbs (R); Height 5 ft. 2 in. (157.48 cm) (R); 05/20 01:35 BP 148 / 88; Pulse 90; Resp 20; Temp 99.0(O); Pulse Ox 97% on R/A; Pain 0/10; jmb 05/19 21:44 Body Mass Index 26.52 (65.77 kg, 157.48 cm) dd6 MDM: 05/19 23:57 Financial registration complete. hs2 05/20 00:02 Chest, 2 View (pa\E\lat) Ordered. EDMS 00:27 CT Chest Without Contrast Ordered. EDMS 00:46 [place] Payment Agreement was scanned into [employer] and attached to record. hs2 12:10 T-Sheet-- Draft Copy was scanned into [employer] and attached to record. gb 12:10 Radiology Report was scanned into [employer] and attached to record. gb Addendum: 05/23/2016 20:35 Radiology Callback: Radiology results faxed to primary care physician/provider. [facility] faxed formal report of cxr for [facility]. Signatures: Dispatcher [employer] EDWI Rula Lobato MD MD ml Judith Lewis, Reg Reg gb Nati Luis RN RN rs3 Sagar Miranda RN RN jmb Tschudi, Diane, PA-C PA-C dt4 Tamica Kunz, Reg Reg hs2 The chart was reviewed and I authenticate all verbal orders and agree with the evaluation and treatment provided.Attachments: 05/20 00:46 [place] [place] Payment Agreement hs2 12:10 T-Sheet-- Draft Copy gb Chart Complete MTDD
--- NOTE | 2016-05-23 20:37 | EDDOCDS ---
Physician Documentation [facility] Name: Galdino Ansari Age: 46 yrs Sex: Male : 1970 Arrival Date: 05/19/2016 Time: 21:42 Bed I5 / M5 Private MD: IDELIANE [place] Disposition: 05/20/16 01:30 Discharged to Home/Self Care. Impression: Shortness of breath, Pulmonary fibrosis, unspecified. - Condition is Stable. - Discharge Instructions: Shortness of Breath. - Medication Reconciliation, Local Pharmacy Hours form. - Follow up: Emergency Department; When: As needed; Reason: Worsening of conditions. [facility] [place]; When: Call to arrange an appointment; Reason: Wound/Symptom Recheck, Recheck today's complaints, Continuance of care. - Problem is new. - Symptoms are unchanged. Historical: - Allergies: Codeine Sulfate (Rash); - Home Meds: 1. Keppra 500 mg Oral tab 1 tab 2 times per day 2. prazosin 2 mg Oral cap 1 cap daily 3. trazodone 50 mg Oral tab 1 tab nightly 4. folic acid 1 mg Oral tab 1 tab once daily 5. indomethacin 50 mg Oral cap 1 cap 2 times per day 6. albuterol sulfate 90 mcg/actuation Inhl HFAA 2 puffs every 4 hours - PMHx: Anxiety; crushed R hand; Depression; PTSD; Seizure Disorder; - PSHx: none; - Social history: Smoking status: Patient uses tobacco products, light tobacco smoker. No barriers to communication noted, Speaks appropriately for age. - Family history: Not pertinent. - : The pt / caregiver states he / she is not on anticoagulants. Home medication list is obtained from the patient. - Exposure Risk Screening:: None identified. None identified. Vital Signs: 05/19 21:44 BP 158 / 97; Pulse 96; Resp 20 S; Temp 99.0(O); Pulse Ox 95% on R/A; Weight 65.77 kg / dd6 145 lbs (R); Height 5 ft. 2 in. (157.48 cm) (R); 05/20 01:35 BP 148 / 88; Pulse 90; Resp 20; Temp 99.0(O); Pulse Ox 97% on R/A; Pain 0/10; jmb 05/19 21:44 Body Mass Index 26.52 (65.77 kg, 157.48 cm) dd6 MDM: 05/19 23:57 Financial registration complete. hs2 05/20 00:02 Chest, 2 View (pa\E\lat) Ordered. EDMS 00:27 CT Chest Without Contrast Ordered. EDMS 00:46 [place] Payment Agreement was scanned into [employer] and attached to record. hs2 12:10 T-Sheet-- Draft Copy was scanned into [employer] and attached to record. gb 12:10 Radiology Report was scanned into [employer] and attached to record. gb Addendum: 05/23/2016 20:35 Radiology Callback: Radiology results faxed to primary care physician/provider. [facility] faxed formal report of cxr for fu mlg. Signatures: Dispatcher [employer] EDMT Rula Lobato MD MD ml Judith Lewis, Reg Reg gb Nati Luis RN RN rs3 Sagar Miranda RN RN jmb Tschudi, Diane, PA-C PA-C dt4 Tamica Kunz, Reg Reg hs2 The chart was reviewed and I authenticate all verbal orders and agree with the evaluation and treatment provided.Attachments: 05/20 00:46 [place] [place] hs2 12:10 T-Sheet-- Draft Copy gb Chart Complete MTDD
--- NOTE | 2016-05-23 20:38 | EDDOCDS ---
Nurse's Notes [facility] Name: Galdino Ansari Age: 46 yrs Sex: Male : 1970 Arrival Date: 05/19/2016 Time: 21:42 Bed I5 / M5 Private MD: [facility] [place] Diagnosis: Shortness of breath;Pulmonary fibrosis, unspecified Presentation: 05/19 21:48 Presenting complaint: Patient states: difficulty breathing today. [facility], said that he has cancer in both lungs. here to get checked. Adult Sepsis Screening: The patient does not have new or worsening altered mentation. Patient's respiratory rate is less than 22. Systolic blood pressure is greater than 100. Patient has a qSOFA score of 0- Negative Sepsis Screen. Suicide/Homicide risk assessment- the patient denies having any suicidal and/or homicidal ideations and does not present with any other emotional, behavioral or mental health complaints. Status: Patient is not a automotive service writer or dependent. Transition of care: patient was not received from another setting of care. 21:48 Method Of Arrival: Walkin/Carried/Asstd rs3 21:48 Acuity: ANNETTE Level 4 rs3 Triage Assessment: 21:55 General: Appears in no apparent distress. Pain: Denies pain. Location: right lateral rs3 posterior chest and left lateral posterior chest. HIV screening NA for this visit Offered previously. Respiratory: Onset: The symptoms/episode began/occurred gradually. Historical: - Allergies: Codeine Sulfate (Rash); - Home Meds: 1. Keppra 500 mg Oral tab 1 tab 2 times per day 2. prazosin 2 mg Oral cap 1 cap daily 3. trazodone 50 mg Oral tab 1 tab nightly 4. folic acid 1 mg Oral tab 1 tab once daily 5. indomethacin 50 mg Oral cap 1 cap 2 times per day 6. albuterol sulfate 90 mcg/actuation Inhl HFAA 2 puffs every 4 hours - PMHx: Anxiety; crushed R hand; Depression; PTSD; Seizure Disorder; - PSHx: none; - Social history: Smoking status: Patient uses tobacco products, light tobacco smoker. No barriers to communication noted, Speaks appropriately for age. - Family history: Not pertinent. - : The pt / caregiver states he / she is not on anticoagulants. Home medication list is obtained from the patient. - Exposure Risk Screening:: None identified. None identified. Screenin/21 01:35 Screening information is obtained from the patient. Fall risk: No risks identified. jmb Assistance ADL's: requires no assistance with activities of daily living. Abuse/DV Screen: The patient / caregiver reports he/she is: not in a situation that causes fear, pain or injury. Nutritional screening: No deficits noted. Advance Directives: Currently, there is no health care proxy. There is no active DNR order. There is no living will. There is no Power of Oil Spot Washer. home support is adequate. Assessment: 00:17 General: Appears in no apparent distress, Behavior is combative. Pain: Denies pain. jmb Neurological: Level of Consciousness is awake, alert, obeys commands, Oriented to person, place, time, Direct Of Real Estate are equal bilaterally Speech is normal, Facial symmetry appears normal, Facial symmetry: tongue is midline. Cardiovascular: Capillary refill < 3 seconds Heart tones present Pulses are all present. Rhythm is regular. Respiratory: Airway is patent Respiratory effort is even, unlabored, Respiratory pattern is regular, symmetrical, Breath sounds with wheezes inspiratory. GI: Abdomen is non- distended Bowel sounds present X 4 quads. Abd is soft and non tender X 4 quads. Derm: Skin is pink, warm & dry. Musculoskeletal: Range of motion intact in all extremities. 01:35 General:. General: Patient instructed on discharge instructions. Patient asked if there jmb were any questions regarding discharge, patient stated no. Patient signed discharge instructions. Patient discharged in stable condition.. Vital Signs: 05/19 21:44 BP 158 / 97; Pulse 96; Resp 20 S; Temp 99.0(O); Pulse Ox 95% on R/A; Weight 65.77 kg dd6 (R); Height 5 ft. 2 in. (157.48 cm) (R); 05/20 01:35 BP 148 / 88; Pulse 90; Resp 20; Temp 99.0(O); Pulse Ox 97% on R/A; Pain 0/10; jmb 05/19 21:44 Body Mass Index 26.52 (65.77 kg, 157.48 cm) dd6 Vitals: 05/19 21:44 Log In Time: May 19, 2016 at 21:42. dd6 ED Course: 21:43 Patient visited by José Miguel Wasserman PCA. dd6 21:43 Patient moved to Waiting dd6 21:44 [facility] is Private Physician. dd6 21:45 Patient moved to Pre RCE dd6 21:51 Triage Initiated rs3 23:10 Patient moved to Triage 1 cz 23:37 Jane Massey PA-C is PHCP. dt4 23:37 Jimmie Sheldon DO is Attending Physician. dt4 23:37 Patient visited by Jane Massey PA-C. dt4 05/20 00:05 Patient moved to I5 / M5 cz 00:18 Patient visited by Sagar Miranda RN. jmb 00:35 Patient visited by Sofya Arias LPN. cp1 00:46 [facility] Payment Agreement was scanned into [employer] and attached to record. hs2 01:03 Patient visited by Sofya Arias LPN. cp1 01:30 [facility] is Referral Physician. dt4 01:32 CT Chest Without Contrast Returned. EDMS 01:35 The patient / caregiver is instructed regarding the plan of care and ED course. jmb 01:35 No IV's were initiated during this patient's visit. No procedures done that require jmb assistance. 11:34 Chest, 2 View (pa\E\lat) Returned. EDMS 12:10 T-Sheet-- Draft Copy was scanned into [employer] and attached to record. gb 12:10 Radiology Report was scanned into [employer] and attached to record. gb Order Results: Radiology Order: Chest, 2 View (pa\E\lat) Test: Chest, 2 View (pa\E\lat) REASON FOR EXAMINATION: ABNORMAL CXR AT [place], ?MASS; PA and lateral chest radiograph 05/20/2016; ; Indication: Abnormal chest radiograph at [place]; possible mass?; ; Comparison: PA and lateral chest 12/18/2014, CT chest 12/05/12; ; Findings: Cardiomediastinal silhouette is of normal size. There is mild; hyperinflation and flattening of diaphragms and that with COPD. Chronic reticulo; interstitial infiltrates are seen bilaterally with some evidence of peripheral; honeycomb pattern in the lung base, with mild progression.; ; Bones and soft tissues within normal limits.; ; Impression:; ; COPD; ; Chronic-appearing interstitial fibrosis with lower lobe and peripheral; predominance and honeycomb appearance in lung bases. There is mild progression; when compared with prior chest radiograph 12/18/2014. Pulmonary medicine; consultation may be considered; ; ; ; ; Signed by; Ailin Marroquin MD 05/20/2016 11:15 A; Radiology Order: CT Chest Without Contrast Test: CT Chest Without Contrast REASON FOR EXAMINATION: ABNORMAL CXR; ; CLINICAL HISTORY: Abnormal chest x-ray.; TECHNIQUE: Multiple axial CT images were obtained through the thorax without IV contrast material.; COMMENTS:; Diffuse bilateral peripheral subpleural interstitial thickening.; Scattered groundglass densities are noted in the mid and lower lung zones.; There is no evidence of pleural or parenchymal-based mass. There are no pleural effusions. There is n; o evidence of hilar or mediastinal lymphadenopathy. The heart and great vessels are within normal vazquez; its.; The visualized portions of the liver are of uniform attenuation without mass or defect. There is no i; ntra or extrahepatic biliary ductal dilatation. The spleen is unremarkable. The visualized pancreas i; s of normal contour and attenuation characteristics. There is no evidence of adrenal mass. The visual; ized portions of the kidneys present no abnormalities.; The bony structures are free of lytic or blastic lesions.; IMPRESSION:; Interstitial pulmonary disease/pulmonary fibrosis.; Associated groundglass densities. Please evaluate to exclude a superimposed infection.; Thank you for your kind referral of this patient.; ; ; Outcome: 01:30 Discharge ordered by Provider. dt4 01:35 Discharge Assessment: Patient awake, alert and oriented x 3. No cognitive and/or jmb functional deficits noted. Patient verbalized understanding of disposition instructions. Patient awake and alert. obeys commands, Oriented to person, place and time. Patient verbalized understanding of disposition instructions. Patient has no functional deficits. patient administered narcotics - no. The following High Risk Discharge criteria are identified: None. Discharged to home ambulatory. Condition: stable. Discharge instructions given to patient, Instructed on discharge instructions, follow up and referral plans. Demonstrated understanding of instructions, Pt was receptive of discharge instructions/ teaching. CT Study completed. Property sent home with patient. 01:37 Patient left the ED. jmb Signatures: Dispatcher [employer] Eldon Bates, RN RN cz Joshua, Judith, Reg Reg gb José Miguel Wasserman, MANAGER STATE MANAGER STATE dd6 Nati Luis,CHIQUITA RN rs3 Sofya Arias,LINSEED OIL ORDER FILLER LINSEED OIL ORDER FILLER cp1 Sagar Miranda,CHIQUITA RN Jane Monet, PA-C PA-C dt4 Tamica Kunz, Reg Reg hs2 Chart Complete MTDD
--- NOTE | 2016-05-23 20:52 | EDDOCDS ---
Nurse's Notes [facility] Name: Galdino Ansari Age: 46 yrs Sex: Male : 1970 Arrival Date: 05/19/2016 Time: 21:42 Bed I5 / M5 Private MD: [facility] [place] Diagnosis: Shortness of breath;Pulmonary fibrosis, unspecified Presentation: 05/19 21:48 Presenting complaint: Patient states: difficulty breathing today. [facility], said that he has cancer in both lungs. here to get checked. Adult Sepsis Screening: The patient does not have new or worsening altered mentation. Patient's respiratory rate is less than 22. Systolic blood pressure is greater than 100. Patient has a qSOFA score of 0- Negative Sepsis Screen. Suicide/Homicide risk assessment- the patient denies having any suicidal and/or homicidal ideations and does not present with any other emotional, behavioral or mental health complaints. Status: Patient is not a food service ambassador or dependent. Transition of care: patient was not received from another setting of care. 21:48 Method Of Arrival: Walkin/Carried/Asstd rs3 21:48 Acuity: ANNETTE Level 4 rs3 Triage Assessment: 21:55 General: Appears in no apparent distress. Pain: Denies pain. Location: right lateral rs3 posterior chest and left lateral posterior chest. HIV screening NA for this visit Offered previously. Respiratory: Onset: The symptoms/episode began/occurred gradually. Historical: - Allergies: Codeine Sulfate (Rash); - Home Meds: 1. Keppra 500 mg Oral tab 1 tab 2 times per day 2. prazosin 2 mg Oral cap 1 cap daily 3. trazodone 50 mg Oral tab 1 tab nightly 4. folic acid 1 mg Oral tab 1 tab once daily 5. indomethacin 50 mg Oral cap 1 cap 2 times per day 6. albuterol sulfate 90 mcg/actuation Inhl HFAA 2 puffs every 4 hours - PMHx: Anxiety; crushed R hand; Depression; PTSD; Seizure Disorder; - PSHx: none; - Social history: Smoking status: Patient uses tobacco products, light tobacco smoker. No barriers to communication noted, Speaks appropriately for age. - Family history: Not pertinent. - : The pt / caregiver states he / she is not on anticoagulants. Home medication list is obtained from the patient. - Exposure Risk Screening:: None identified. None identified. Screenin/21 01:35 Screening information is obtained from the patient. Fall risk: No risks identified. jmb Assistance ADL's: requires no assistance with activities of daily living. Abuse/DV Screen: The patient / caregiver reports he/she is: not in a situation that causes fear, pain or injury. Nutritional screening: No deficits noted. Advance Directives: Currently, there is no health care proxy. There is no active DNR order. There is no living will. There is no Power of Air Brush Operator. home support is adequate. Assessment: 00:17 General: Appears in no apparent distress, Behavior is combative. Pain: Denies pain. jmb Neurological: Level of Consciousness is awake, alert, obeys commands, Oriented to person, place, time, Bung [place]er are equal bilaterally Speech is normal, Facial symmetry appears normal, Facial symmetry: tongue is midline. Cardiovascular: Capillary refill < 3 seconds Heart tones present Pulses are all present. Rhythm is regular. Respiratory: Airway is patent Respiratory effort is even, unlabored, Respiratory pattern is regular, symmetrical, Breath sounds with wheezes inspiratory. GI: Abdomen is non- distended Bowel sounds present X 4 quads. Abd is soft and non tender X 4 quads. Derm: Skin is pink, warm & dry. Musculoskeletal: Range of motion intact in all extremities. 01:35 General:. General: Patient instructed on discharge instructions. Patient asked if there jmb were any questions regarding discharge, patient stated no. Patient signed discharge instructions. Patient discharged in stable condition.. Vital Signs: 05/19 21:44 BP 158 / 97; Pulse 96; Resp 20 S; Temp 99.0(O); Pulse Ox 95% on R/A; Weight 65.77 kg dd6 (R); Height 5 ft. 2 in. (157.48 cm) (R); 05/20 01:35 BP 148 / 88; Pulse 90; Resp 20; Temp 99.0(O); Pulse Ox 97% on R/A; Pain 0/10; jmb 05/19 21:44 Body Mass Index 26.52 (65.77 kg, 157.48 cm) dd6 Vitals: 05/19 21:44 Log In Time: May 19, 2016 at 21:42. dd6 ED Course: 21:43 Patient visited by José Miguel Wsaserman PCA. dd6 21:43 Patient moved to Waiting dd6 21:44 [facility] is Private Physician. dd6 21:45 Patient moved to Pre RCE dd6 21:51 Triage Initiated rs3 23:10 Patient moved to Triage 1 cz 23:37 Jane Massey PA-C is PHCP. dt4 23:37 Jimmie Sheldon DO is Attending Physician. dt4 23:37 Patient visited by Jane Massey PA-C. dt4 05/20 00:05 Patient moved to I5 / M5 cz 00:18 Patient visited by Sagar Miranda RN. jmb 00:35 Patient visited by Sofya Arias LPN. cp1 00:46 [facility] Payment Agreement was scanned into [employer] and attached to record. hs2 01:03 Patient visited by Sofya Arias LPN. cp1 01:30 [facility] is Referral Physician. dt4 01:32 CT Chest Without Contrast Returned. EDMS 01:35 The patient / caregiver is instructed regarding the plan of care and ED course. jmb 01:35 No IV's were initiated during this patient's visit. No procedures done that require jmb assistance. 11:34 Chest, 2 View (pa\E\lat) Returned. EDMS 12:10 T-Sheet-- Draft Copy was scanned into [employer] and attached to record. gb 12:10 Radiology Report was scanned into [employer] and attached to record. gb Order Results: Radiology Order: Chest, 2 View (pa\E\lat) Test: Chest, 2 View (pa\E\lat) REASON FOR EXAMINATION: ABNORMAL CXR AT [place], ?MASS; PA and lateral chest radiograph 05/20/2016; ; Indication: Abnormal chest radiograph at [place]; possible mass?; ; Comparison: [place] and lateral chest 12/18/2014, CT chest 12/05/12; ; Findings: Cardiomediastinal silhouette is of normal size. There is mild; hyperinflation and flattening of diaphragms and that with COPD. Chronic reticulo; interstitial infiltrates are seen bilaterally with some evidence of peripheral; honeycomb pattern in the lung base, with mild progression.; ; Bones and soft tissues within normal limits.; ; Impression:; ; COPD; ; Chronic-appearing interstitial fibrosis with lower lobe and peripheral; predominance and honeycomb appearance in lung bases. There is mild progression; when compared with prior chest radiograph 12/18/2014. Pulmonary medicine; consultation may be considered; ; ; ; ; Signed by; Ailin Marroquin MD 05/20/2016 11:15 A; Radiology Order: CT Chest Without Contrast Test: CT Chest Without Contrast REASON FOR EXAMINATION: ABNORMAL CXR; ; CLINICAL HISTORY: Abnormal chest x-ray.; TECHNIQUE: Multiple axial CT images were obtained through the thorax without IV contrast material.; COMMENTS:; Diffuse bilateral peripheral subpleural interstitial thickening.; Scattered groundglass densities are noted in the mid and lower lung zones.; There is no evidence of pleural or parenchymal-based mass. There are no pleural effusions. There is n; o evidence of hilar or mediastinal lymphadenopathy. The heart and great vessels are within normal vazquez; its.; The visualized portions of the liver are of uniform attenuation without mass or defect. There is no i; ntra or extrahepatic biliary ductal dilatation. The spleen is unremarkable. The visualized pancreas i; s of normal contour and attenuation characteristics. There is no evidence of adrenal mass. The visual; ized portions of the kidneys present no abnormalities.; The bony structures are free of lytic or blastic lesions.; IMPRESSION:; Interstitial pulmonary disease/pulmonary fibrosis.; Associated groundglass densities. Please evaluate to exclude a superimposed infection.; Thank you for your kind referral of this patient.; ; ; Outcome: 01:30 Discharge ordered by Provider. dt4 01:35 Discharge Assessment: Patient awake, alert and oriented x 3. No cognitive and/or jmb functional deficits noted. Patient verbalized understanding of disposition instructions. Patient awake and alert. obeys commands, Oriented to person, place and time. Patient verbalized understanding of disposition instructions. Patient has no functional deficits. patient administered narcotics - no. The following High Risk Discharge criteria are identified: None. Discharged to home ambulatory. Condition: stable. Discharge instructions given to patient, Instructed on discharge instructions, follow up and referral plans. Demonstrated understanding of instructions, Pt was receptive of discharge instructions/ teaching. CT Study completed. Property sent home with patient. 01:37 Patient left the ED. jmb Signatures: Dispatcher [employer] Eldon Bates, RN RN cz Joshua, Judith, Reg Reg gb José Miguel Wasserman, PORCELAIN ENAMELER PORCELAIN ENAMELER dd6 Nati Luis,CHIQUITA RN rs3 Sofya Arias,STATOR WINDER STATOR WINDER cp1 Sagar Miranda,CHIQUITA RN Jane Monet, PA-C PA-C dt4 Tamica Kunz, Reg Reg hs2 MTDD
--- NOTE | 2016-05-23 20:52 | EDDOCDS ---
Physician Documentation [facility] Name: Galdino Ansari Age: 46 yrs Sex: Male : 1970 Arrival Date: 05/19/2016 Time: 21:42 Bed I5 / M5 Private MD: GAELIANE [place] Disposition: 05/20/16 01:30 Discharged to Home/Self Care. Impression: Shortness of breath, Pulmonary fibrosis, unspecified. - Condition is Stable. - Discharge Instructions: Shortness of Breath. - Medication Reconciliation, Local Pharmacy Hours form. - Follow up: Emergency Department; When: As needed; Reason: Worsening of conditions. [facility] [place]; When: Call to arrange an appointment; Reason: Wound/Symptom Recheck, Recheck today's complaints, Continuance of care. - Problem is new. - Symptoms are unchanged. Historical: - Allergies: Codeine Sulfate (Rash); - Home Meds: 1. Keppra 500 mg Oral tab 1 tab 2 times per day 2. prazosin 2 mg Oral cap 1 cap daily 3. trazodone 50 mg Oral tab 1 tab nightly 4. folic acid 1 mg Oral tab 1 tab once daily 5. indomethacin 50 mg Oral cap 1 cap 2 times per day 6. albuterol sulfate 90 mcg/actuation Inhl HFAA 2 puffs every 4 hours - PMHx: Anxiety; crushed R hand; Depression; PTSD; Seizure Disorder; - PSHx: none; - Social history: Smoking status: Patient uses tobacco products, light tobacco smoker. No barriers to communication noted, Speaks appropriately for age. - Family history: Not pertinent. - : The pt / caregiver states he / she is not on anticoagulants. Home medication list is obtained from the patient. - Exposure Risk Screening:: None identified. None identified. Vital Signs: 05/19 21:44 BP 158 / 97; Pulse 96; Resp 20 S; Temp 99.0(O); Pulse Ox 95% on R/A; Weight 65.77 kg / dd6 145 lbs (R); Height 5 ft. 2 in. (157.48 cm) (R); 05/20 01:35 BP 148 / 88; Pulse 90; Resp 20; Temp 99.0(O); Pulse Ox 97% on R/A; Pain 0/10; jmb 05/19 21:44 Body Mass Index 26.52 (65.77 kg, 157.48 cm) dd6 MDM: 05/19 23:57 Financial registration complete. hs2 05/20 00:02 Chest, 2 View (pa\E\lat) Ordered. EDMS 00:27 CT Chest Without Contrast Ordered. EDMS 00:46 [facility] [place] Agreement was scanned into [employer] and attached to record. hs2 12:10 T-Sheet-- Draft Copy was scanned into [employer] and attached to record. gb 12:10 Radiology Report was scanned into [employer] and attached to record. gb Addendum: 05/23/2016 20:35 Radiology Callback: Radiology results faxed to primary care physician/provider. [facility] faxed formal report of cxr for fu mlg. 20:51 Radiology Callback: Radiology results faxed to primary care physician/provider. [facility] faxed formal report of ct chest mlg. Signatures: Dispatcher MedHo EDOK Rula Lobato MD MD ml Barnhardt, Gloria, Reg Reg gb Nati LuisRN RN rs3 Sagar MirandaRN RN juan albertob Jane Massey, ARNOLD PA-C dt4 Tamica Kunz, Reg Reg hs2 The chart was reviewed and I authenticate all verbal orders and agree with the evaluation and treatment provided.Attachments: 05/20 00:46 [facility] [place] hs2 12:10 T-Sheet-- Draft Copy gb MTDD
--- NOTE | 2016-05-23 20:52 | EDDOCDS ---
Physician Documentation [facility] Name: Galdino Ansari Age: 46 yrs Sex: Male : 1970 Arrival Date: 05/19/2016 Time: 21:42 Bed I5 / M5 Private MD: NDELIANE [place] Disposition: 05/20/16 01:30 Discharged to Home/Self Care. Impression: Shortness of breath, Pulmonary fibrosis, unspecified. - Condition is Stable. - Discharge Instructions: Shortness of Breath. - Medication Reconciliation, Local Pharmacy Hours form. - Follow up: Emergency Department; When: As needed; Reason: Worsening of conditions. [facility] [place]; When: Call to arrange an appointment; Reason: Wound/Symptom Recheck, Recheck today's complaints, Continuance of care. - Problem is new. - Symptoms are unchanged. Historical: - Allergies: Codeine Sulfate (Rash); - Home Meds: 1. Keppra 500 mg Oral tab 1 tab 2 times per day 2. prazosin 2 mg Oral cap 1 cap daily 3. trazodone 50 mg Oral tab 1 tab nightly 4. folic acid 1 mg Oral tab 1 tab once daily 5. indomethacin 50 mg Oral cap 1 cap 2 times per day 6. albuterol sulfate 90 mcg/actuation Inhl HFAA 2 puffs every 4 hours - PMHx: Anxiety; crushed R hand; Depression; PTSD; Seizure Disorder; - PSHx: none; - Social history: Smoking status: Patient uses tobacco products, light tobacco smoker. No barriers to communication noted, Speaks appropriately for age. - Family history: Not pertinent. - : The pt / caregiver states he / she is not on anticoagulants. Home medication list is obtained from the patient. - Exposure Risk Screening:: None identified. None identified. Vital Signs: 05/19 21:44 BP 158 / 97; Pulse 96; Resp 20 S; Temp 99.0(O); Pulse Ox 95% on R/A; Weight 65.77 kg / dd6 145 lbs (R); Height 5 ft. 2 in. (157.48 cm) (R); 05/20 01:35 BP 148 / 88; Pulse 90; Resp 20; Temp 99.0(O); Pulse Ox 97% on R/A; Pain 0/10; jmb 05/19 21:44 Body Mass Index 26.52 (65.77 kg, 157.48 cm) dd6 MDM: 05/19 23:57 Financial registration complete. hs2 05/20 00:02 Chest, 2 View (pa\E\lat) Ordered. EDMS 00:27 CT Chest Without Contrast Ordered. EDMS 00:46 [facility] [place] was scanned into [employer] and attached to record. hs2 12:10 T-Sheet-- Draft Copy was scanned into MEDHOST and attached to record. gb 12:10 Radiology Report was scanned into [employer] and attached to record. gb Addendum: 05/23/2016 20:35 Radiology Callback: Radiology results faxed to primary care physician/provider. [facility] [address] faxed formal report of cxr for fu mlg. 20:51 Radiology Callback: Radiology results faxed to primary care physician/provider. [facility] [address] faxed formal report of ct chest mlg. Signatures: Dispatcher MedHo EDHI Rula Lobato MD MD ml Barnhardt, Gloria, Reg Reg gb Nati LuisRN RN rs3 Sagar MirandaRN RN juan albertob Jane Massey, ARNOLD PA-C dt4 Tamica Kunz, Reg Reg hs2 The chart was reviewed and I authenticate all verbal orders and agree with the evaluation and treatment provided.Attachments: 05/20 00:46 [facility] [place] hs2 12:10 T-Sheet-- Draft Copy gb MTDD
--- NOTE | 2016-05-23 20:53 | EDDOCDS ---
Physician Documentation [facility] Name: Galdino Ansari Age: 46 yrs Sex: Male : 1970 Arrival Date: 05/19/2016 Time: 21:42 Bed I5 / M5 Private MD: WIELIANE [place] Disposition: 05/20/16 01:30 Discharged to Home/Self Care. Impression: Shortness of breath, Pulmonary fibrosis, unspecified. - Condition is Stable. - Discharge Instructions: Shortness of Breath. - Medication Reconciliation, Local Pharmacy Hours form. - Follow up: Emergency Department; When: As needed; Reason: Worsening of conditions. Follow [facility]: [facility] [place]; When: Call to arrange an appointment; Reason: Wound/Symptom Recheck, Recheck today's complaints, Continuance of care. - Problem is new. - Symptoms are unchanged. Historical: - Allergies: Codeine Sulfate (Rash); - Home Meds: 1. Keppra 500 mg Oral tab 1 tab 2 times per day 2. prazosin 2 mg Oral cap 1 cap daily 3. trazodone 50 mg Oral tab 1 tab nightly 4. folic acid 1 mg Oral tab 1 tab once daily 5. indomethacin 50 mg Oral cap 1 cap 2 times per day 6. albuterol sulfate 90 mcg/actuation Inhl HFAA 2 puffs every 4 hours - PMHx: Anxiety; crushed R hand; Depression; PTSD; Seizure Disorder; - PSHx: none; - Social history: Smoking status: Patient uses tobacco products, light tobacco smoker. No barriers to communication noted, Speaks appropriately for age. - Family history: Not pertinent. - : The pt / caregiver states he / she is not on anticoagulants. Home medication list is obtained from the patient. - Exposure Risk Screening:: None identified. None identified. Vital Signs: 05/19 21:44 BP 158 / 97; Pulse 96; Resp 20 S; Temp 99.0(O); Pulse Ox 95% on R/A; Weight 65.77 kg / dd6 145 lbs (R); Height 5 ft. 2 in. (157.48 cm) (R); 05/20 01:35 BP 148 / 88; Pulse 90; Resp 20; Temp 99.0(O); Pulse Ox 97% on R/A; Pain 0/10; jmb 05/19 21:44 Body Mass Index 26.52 (65.77 kg, 157.48 cm) dd6 MDM: 05/19 23:57 Financial registration complete. hs2 05/20 00:02 Chest, 2 View (pa\E\lat) Ordered. EDMS 00:27 CT Chest Without Contrast Ordered. EDMS 00:46 [facility] Payment Agreement was scanned into [employer] and attached to record. hs2 12:10 T-Sheet-- Draft Copy was scanned into MEDHOST and attached to record. gb 12:10 Radiology Report was scanned into [employer] and attached to record. gb Addendum: 05/23/2016 20:35 Radiology Callback: Radiology results faxed to primary care physician/provider. [facility] faxed formal report of cxr for fu mlg. 20:51 Radiology Callback: Radiology results faxed to primary care physician/provider. [facility] faxed formal report of ct chest mlg. Signatures: Dispatcher MedHost EDFL Rula Lobato MD MD ml Barnhardt, Gloria, Reg Reg gb Nati LuisRN RN rs3 Sagar MirandaRN RN juan albertob Jane Massey, ARNOLD PA-C dt4 Tamica Kunz, Reg Reg hs2 The chart was reviewed and I authenticate all verbal orders and agree with the evaluation and treatment provided.Attachments: 05/20 00:46 [facility] Payment Agreement hs2 12:10 T-Sheet-- Draft Copy gb Chart Complete MTDD
--- NOTE | 2016-05-23 20:53 | EDDOCDS ---
Nurse's Notes [facility] Name: Galdino Ansari Age: 46 yrs Sex: Male : 1970 Arrival Date: 05/19/2016 Time: 21:42 Bed I5 / M5 Private MD: [facility] [place] Diagnosis: Shortness of breath;Pulmonary fibrosis, unspecified Presentation: 05/19 21:48 Presenting complaint: Patient states: difficulty breathing today. [facility], said that he has cancer in both lungs. here to get checked. Adult Sepsis Screening: The patient does not have new or worsening altered mentation. Patient's respiratory rate is less than 22. Systolic blood pressure is greater than 100. Patient has a qSOFA score of 0- Negative Sepsis Screen. Suicide/Homicide risk assessment- the patient denies having any suicidal and/or homicidal ideations and does not present with any other emotional, behavioral or mental health complaints. Status: Patient is not a supervisor kosher dietary service or dependent. Transition of care: patient was not received from another setting of care. 21:48 Method Of Arrival: Walkin/Carried/Asstd rs3 21:48 Acuity: ANNETTE Level 4 rs3 Triage Assessment: 21:55 General: Appears in no apparent distress. Pain: Denies pain. Location: right lateral rs3 posterior chest and left lateral posterior chest. HIV screening NA for this visit Offered previously. Respiratory: Onset: The symptoms/episode began/occurred gradually. Historical: - Allergies: Codeine Sulfate (Rash); - Home Meds: 1. Keppra 500 mg Oral tab 1 tab 2 times per day 2. prazosin 2 mg Oral cap 1 cap daily 3. trazodone 50 mg Oral tab 1 tab nightly 4. folic acid 1 mg Oral tab 1 tab once daily 5. indomethacin 50 mg Oral cap 1 cap 2 times per day 6. albuterol sulfate 90 mcg/actuation Inhl HFAA 2 puffs every 4 hours - PMHx: Anxiety; crushed R hand; Depression; PTSD; Seizure Disorder; - PSHx: none; - Social history: Smoking status: Patient uses tobacco products, light tobacco smoker. No barriers to communication noted, Speaks appropriately for age. - Family history: Not pertinent. - : The pt / caregiver states he / she is not on anticoagulants. Home medication list is obtained from the patient. - Exposure Risk Screening:: None identified. None identified. Screenin/21 01:35 Screening information is obtained from the patient. Fall risk: No risks identified. jmb Assistance ADL's: requires no assistance with activities of daily living. Abuse/DV Screen: The patient / caregiver reports he/she is: not in a situation that causes fear, pain or injury. Nutritional screening: No deficits noted. Advance Directives: Currently, there is no health care proxy. There is no active DNR order. There is no living will. There is no Power of Manager Payment. home support is adequate. Assessment: 00:17 General: Appears in no apparent distress, Behavior is combative. Pain: Denies pain. jmb Neurological: Level of Consciousness is awake, alert, obeys commands, Oriented to person, place, time, Clip Wrapper are equal bilaterally Speech is normal, Facial symmetry appears normal, Facial symmetry: tongue is midline. Cardiovascular: Capillary refill < 3 seconds Heart tones present Pulses are all present. Rhythm is regular. Respiratory: Airway is patent Respiratory effort is even, unlabored, Respiratory pattern is regular, symmetrical, Breath sounds with wheezes inspiratory. GI: Abdomen is non- distended Bowel sounds present X 4 quads. Abd is soft and non tender X 4 quads. Derm: Skin is pink, warm & dry. Musculoskeletal: Range of motion intact in all extremities. 01:35 General:. General: Patient instructed on discharge instructions. Patient asked if there jmb were any questions regarding discharge, patient stated no. Patient signed discharge instructions. Patient discharged in stable condition.. Vital Signs: 05/19 21:44 BP 158 / 97; Pulse 96; Resp 20 S; Temp 99.0(O); Pulse Ox 95% on R/A; Weight 65.77 kg dd6 (R); Height 5 ft. 2 in. (157.48 cm) (R); 05/20 01:35 BP 148 / 88; Pulse 90; Resp 20; Temp 99.0(O); Pulse Ox 97% on R/A; Pain 0/10; jmb 05/19 21:44 Body Mass Index 26.52 (65.77 kg, 157.48 cm) dd6 Vitals: 05/19 21:44 Log In Time: May 19, 2016 at 21:42. dd6 ED Course: 21:43 Patient visited by José Miguel Wasserman PCA. dd6 21:43 Patient moved to Waiting dd6 21:44 [facility] is Private Physician. dd6 21:45 Patient moved to Pre RCE dd6 21:51 Triage Initiated rs3 23:10 Patient moved to Triage 1 cz 23:37 Jane Massey PA-C is PHCP. dt4 23:37 Jimmie Sheldon DO is Attending Physician. dt4 23:37 Patient visited by Jane Massey PA-C. dt4 05/20 00:05 Patient moved to I5 / M5 cz 00:18 Patient visited by Sagar Miranda RN. jmb 00:35 Patient visited by oSfya Arias LPN. cp1 00:46 [facility] Payment Agreement was scanned into [employer] and attached to record. hs2 01:03 Patient visited by Sofya Arias LPN. cp1 01:30 [facility] is Referral Physician. dt4 01:32 CT Chest Without Contrast Returned. EDMS 01:35 The patient / caregiver is instructed regarding the plan of care and ED course. jmb 01:35 No IV's were initiated during this patient's visit. No procedures done that require jmb assistance. 11:34 Chest, 2 View (pa\E\lat) Returned. EDMS 12:10 T-Sheet-- Draft Copy was scanned into [employer] and attached to record. gb 12:10 Radiology Report was scanned into [employer] and attached to record. gb Order Results: Radiology Order: Chest, 2 View (pa\E\lat) Test: Chest, 2 View (pa\E\lat) REASON FOR EXAMINATION: ABNORMAL CXR AT [place], ?MASS; PA and lateral chest radiograph 05/20/2016; ; Indication: Abnormal chest radiograph at [place]; possible mass?; ; Comparison: PA and lateral chest 12/18/2014, CT chest 12/05/12; ; Findings: Cardiomediastinal silhouette is of normal size. There is mild; hyperinflation and flattening of diaphragms and that with COPD. Chronic reticulo; interstitial infiltrates are seen bilaterally with some evidence of peripheral; honeycomb pattern in the lung base, with mild progression.; ; Bones and soft tissues within normal limits.; ; Impression:; ; COPD; ; Chronic-appearing interstitial fibrosis with lower lobe and peripheral; predominance and honeycomb appearance in lung bases. There is mild progression; when compared with prior chest radiograph 12/18/2014. Pulmonary medicine; consultation may be considered; ; ; ; ; Signed by; Ailin Marroquin MD 05/20/2016 11:15 A; Radiology Order: CT Chest Without Contrast Test: CT Chest Without Contrast REASON FOR EXAMINATION: ABNORMAL CXR; ; CLINICAL HISTORY: Abnormal chest x-ray.; TECHNIQUE: Multiple axial CT images were obtained through the thorax without IV contrast material.; COMMENTS:; Diffuse bilateral peripheral subpleural interstitial thickening.; Scattered groundglass densities are noted in the mid and lower lung zones.; There is no evidence of pleural or parenchymal-based mass. There are no pleural effusions. There is n; o evidence of hilar or mediastinal lymphadenopathy. The heart and great vessels are within normal vazquez; its.; The visualized portions of the liver are of uniform attenuation without mass or defect. There is no i; ntra or extrahepatic biliary ductal dilatation. The spleen is unremarkable. The visualized pancreas i; s of normal contour and attenuation characteristics. There is no evidence of adrenal mass. The visual; ized portions of the kidneys present no abnormalities.; The bony structures are free of lytic or blastic lesions.; IMPRESSION:; Interstitial pulmonary disease/pulmonary fibrosis.; Associated groundglass densities. Please evaluate to exclude a superimposed infection.; Thank you for your kind referral of this patient.; ; ; Outcome: 01:30 Discharge ordered by Provider. dt4 01:35 Discharge Assessment: Patient awake, alert and oriented x 3. No cognitive and/or jmb functional deficits noted. Patient verbalized understanding of disposition instructions. Patient awake and alert. obeys commands, Oriented to person, place and time. Patient verbalized understanding of disposition instructions. Patient has no functional deficits. patient administered narcotics - no. The following High Risk Discharge criteria are identified: None. Discharged to home ambulatory. Condition: stable. Discharge instructions given to patient, Instructed on discharge instructions, follow up and referral plans. Demonstrated understanding of instructions, Pt was receptive of discharge instructions/ teaching. CT Study completed. Property sent home with patient. 01:37 Patient left the ED. jmb Signatures: Dispatcher MedHost Eldon Bates, RN RN cz Joshua, Judith, Reg Reg gb José Miguel Wasserman, BASEBOARD HEATING INSTALLER BASEBOARD HEATING INSTALLER dd6 Nati Luis,CHIQUITA RN rs3 Sofya Arias,PARCEL POST TRUCK DRIVER PARCEL POST TRUCK DRIVER cp1 Sagar Miranda,CHIQUITA RN Jane Monet, PA-C PA-C dt4 Tamica Kunz, Reg Reg hs2 Chart Complete MTDD
--- NOTE | 2016-05-23 20:53 | EDDOCDS ---
Physician Documentation [facility] Name: Galdino Ansari Age: 46 yrs Sex: Male : 1970 Arrival Date: 05/19/2016 Time: 21:42 Bed I5 / M5 Private MD: MEELIANE [place] Disposition: 05/20/16 01:30 Discharged to Home/Self Care. Impression: Shortness of breath, Pulmonary fibrosis, unspecified. - Condition is Stable. - Discharge Instructions: Shortness of Breath. - Medication Reconciliation, Local Pharmacy Hours form. - Follow up: Emergency Department; When: As needed; Reason: Worsening of conditions. Follow up: [facility] [place]; When: Call to arrange an appointment; Reason: Wound/Symptom Recheck, Recheck today's complaints, Continuance of care. - Problem is new. - Symptoms are unchanged. Historical: - Allergies: Codeine Sulfate (Rash); - Home Meds: 1. Keppra 500 mg Oral tab 1 tab 2 times per day 2. prazosin 2 mg Oral cap 1 cap daily 3. trazodone 50 mg Oral tab 1 tab nightly 4. folic acid 1 mg Oral tab 1 tab once daily 5. indomethacin 50 mg Oral cap 1 cap 2 times per day 6. albuterol sulfate 90 mcg/actuation Inhl HFAA 2 puffs every 4 hours - PMHx: Anxiety; crushed R hand; Depression; PTSD; Seizure Disorder; - PSHx: none; - Social history: Smoking status: Patient uses tobacco products, light tobacco smoker. No barriers to communication noted, Speaks appropriately for age. - Family history: Not pertinent. - : The pt / caregiver states he / she is not on anticoagulants. Home medication list is obtained from the patient. - Exposure Risk Screening:: None identified. None identified. Vital Signs: 05/19 21:44 BP 158 / 97; Pulse 96; Resp 20 S; Temp 99.0(O); Pulse Ox 95% on R/A; Weight 65.77 kg / dd6 145 lbs (R); Height 5 ft. 2 in. (157.48 cm) (R); 05/20 01:35 BP 148 / 88; Pulse 90; Resp 20; Temp 99.0(O); Pulse Ox 97% on R/A; Pain 0/10; jmb 05/19 21:44 Body Mass Index 26.52 (65.77 kg, 157.48 cm) dd6 MDM: 05/19 23:57 Financial registration complete. hs2 05/20 00:02 Chest, 2 View (pa\E\lat) Ordered. EDMS 00:27 CT Chest Without Contrast Ordered. EDMS 00:46 [facility] Payment Agreement was scanned into [employer] and attached to record. hs2 12:10 T-Sheet-- Draft Copy was scanned into [employer] and attached to record. gb 12:10 Radiology Report was scanned into [employer] and attached to record. gb Addendum: 05/23/2016 20:35 Radiology Callback: Radiology results faxed to primary care physician/provider. [facility] faxed formal report of cxr for fu mlg. 20:51 Radiology Callback: Radiology results faxed to primary care physician/provider. [facility] faxed formal report of ct chest mlg. Signatures: Dispatcher MedHost EDMD Rula Lobato MD MD ml Barnhardt, Gloria, Reg Reg gb Nati LuisRN RN rs3 Sagar MirandaRN RN juan albertob Jane Massey, ARNOLD PA-C dt4 Tamica Kunz, Reg Reg hs2 The chart was reviewed and I authenticate all verbal orders and agree with the evaluation and treatment provided.Attachments: 05/20 00:46 [facility] Payment Agreement hs2 12:10 T-Sheet-- Draft Copy gb Chart Complete MTDD
== END 2016-05-20 01:37 | disposition home or self-care (01) ==
LOC: M ED 21:42
DX: J84.10 Pulmonary fibrosis, unspecified (principal); G40.909 Epilepsy, unspecified, not intractable, without status epilepticus; F41.9 Anxiety disorder, unspecified; F32.9 Major depressive disorder, single episode, unspecified; F43.10 Post-traumatic stress disorder, unspecified; Z79.899 Other long term (current) drug therapy; F17.200 Nicotine dependence, unspecified, uncomplicated; Z88.5 Allergy status to narcotic agent

== ENCOUNTER → 2016-07-12 | Outpatient (CLI) | payer OTHER ==
--- NOTE | 2016-07-13 02:57 | REP ---
Clinical: Trauma. Technique: AP and lateral views of the left forearm. Findings: There is a very subtle nondisplaced fracture involving the radial head along with overlying soft tissue swelling and joint effusion. Impression: Subtle nondisplaced fracture of the radial head with joint swelling and effusion. Signed by Jules Mckeon MD 07/13/2016 02:48 A
== END ==
LOC: M WUC 14:27
PROVIDERS: ATTEND Surgery
DX: S52.122A Displaced fracture of head of left radius, initial encounter for closed fracture (principal); X58.XXXA Exposure to other specified factors, initial encounter; Y92.9 Unspecified place or not applicable

== ENCOUNTER 2016-08-14 01:17 | Emergency (ER) | payer OTHER ==
[~2016-08-14] VITALS: Ht 157.5 cm; Wt 63.0 kg
[2016-08-14 01:25] VITALS: BP 115/74
== END 2016-08-14 03:06 | disposition left against medical advice (07) ==
LOC: EDBD 01:17 → M ED 02:40
DX: S01.90XA Unspecified open wound of unspecified part of head, initial encounter (principal); R56.9 Unspecified convulsions; X58.XXXA Exposure to other specified factors, initial encounter; Y92.9 Unspecified place or not applicable; Y93.9 Activity, unspecified; Y99.9 Unspecified external cause status; Z88.5 Allergy status to narcotic agent

== ENCOUNTER 2016-08-20 16:14 | Emergency (ER) | payer MEDICAID, OTHER, SELFPAY ==
[2016-08-20] MEDS ORDERED: VENL75TA2 (16:25)
[2016-08-20] MEDS ORDERED: TRAZ50TA4 (16:25)
[2016-08-20 16:27] VITALS: BP 147/90
[2016-08-20] MEDS ORDERED: IPRATROPIUM 0.5MG/ALBUTEROL 2.5MG INH SOL UD 3ML (DUONEB)(J7620) NEB ONE (16:30)
--- NOTE | 2016-08-20 16:55 | REP ---
CT of the brain without IV contrast: Comparison is 06/08/2013. There is no subdural or epidural hematoma. There is no intraparenchymal or subarachnoid hemorrhage. Ventricles are normal size and midline. There is no edema, mass effect or midline shift. Cortical stripe is unremarkable. Impression: There is no subdural or epidural hematoma or hemorrhage otherwise. No acute infarct or mass. Negative CT study of the brain. Signed by Tariq Cox MD 08/20/2016 04:47 P
--- NOTE | 2016-08-20 17:17 | REP ---
PA and lateral chest: Comparison is 05/20/2016. There is another comparison dated 09/01/2014. There is chronic interstitial coarsening compatible with chronic lung disease. There are no acute infiltrates or effusions. There are no masses. Cardiac size is normal. The alta, mediastinum, and bony thorax are unremarkable. There is no pneumothorax, hemothorax or pulmonary contusion. No thoracic vertebral compression deformities. No rib fractures. Signed by Tariq Cox MD 08/20/2016 05:09 P
[2016-08-20] MEDS ORDERED: NICOTINE 21MG/24HR 1 EA TRANSDERMAL TD ONE (17:45)
== END 2016-08-20 18:22 | disposition home or self-care (01) ==
LOC: M ED 17:50
DX: F10.120 Alcohol abuse with intoxication, uncomplicated (principal); F43.10 Post-traumatic stress disorder, unspecified; Z79.899 Other long term (current) drug therapy; Z88.5 Allergy status to narcotic agent; R56.9 Unspecified convulsions; J45.909 Unspecified asthma, uncomplicated

== ENCOUNTER 2017-02-06 09:52 | Emergency (ER) | payer MEDICAID, SELFPAY ==
[~2017-02-06] VITALS: Ht 157.5 cm; Wt 70.0 kg
[~2017-02-06 09:52] MED LIST changes: -FOLI1TAB2 PO; +FOLI1TAB4 PO; -IBUP200C PO; +IBUP200C10 PO; +KEPP1TAB PO; -KEPP500T6 PO; -LIDO5DIS36 TD; +LIDO5DIS41 TD; +OXAZ15CA4 PO; -THIA100T PO; +THIA100T6 PO; +TRAZ50TA11; +VENL37.52 PO; -VENL37CA PO; -VENL75CA PO; +VENL75CA2 PO; +VENL75TA2
[2017-02-06] MEDS ORDERED: MULT1TAB18 PO (10:06)
--- NOTE | 2017-02-06 11:41 | REP ---
MAXILLOFACIAL CT WITHOUT CONTRAST: HISTORY: Trauma. Mild mucosal thickening is present in the left ethmoid sinus. Minimal mucosal thickening is present in the maxillary, right ethmoid, and left sphenoid sinuses. The remaining sinuses are clear. Mucosal thickening involves the osteomeatal units. The middle and inferior nasal turbinates are partially paradoxical. There is minimal deviation of the nasal septum to the right anteriorly and to the left posteriorly. A small spur is present arising from the left side of the nasal septum. The cribriform plate, medial rodrigez of the orbits, and optic canals are intact. There is aeration of the left anterior clinoid process. The carotid canals form a segment of the posterolateral rodrigez of the sphenoid sinus. The sphenoid sinus septum inserts into the left internal carotid canal wall. There is no fracture. Soft tissue swelling is present over the left orbit. IMPRESSION: Sinus mucosal thickening as described above. Signed by Richie Doyle MD 02/06/2017 11:43 A
[2017-02-06] MEDS ORDERED: METAL LOCK LOOP XX ONE (11:51)
--- NOTE | 2017-02-06 12:02 | REP ---
UNILATERAL LEFT RIBS, PA CHEST, FOUR VIEWS: HISTORY: Trauma. COMPARISON: 08/20/2016. A diffuse increase in interstitial markings is present in the lungs consistent with chronic interstitial fibrosis. The heart is normal in size. The pulmonary vasculature is normal in appearance. There are fractures of the left 7th and 8th ribs. IMPRESSION: 1. Chronic interstitial fibrosis. 2. Fractures of the left 7th and 8th ribs. Signed by Richie Doyle MD 02/06/2017 12:08 P
[2017-02-06] MEDS ORDERED: ULTR50TA8 PO (12:41)
[2017-02-06 13:12] VITALS: BP 121/73
== END 2017-02-06 13:13 | disposition home or self-care (01) ==
LOC: M ED 09:52
DX: S22.42XA Multiple fractures of ribs, left side, initial encounter for closed fracture (principal); S00.83XA Contusion of other part of head, initial encounter; X58.XXXA Exposure to other specified factors, initial encounter; Y92.9 Unspecified place or not applicable; Y93.9 Activity, unspecified; Y99.9 Unspecified external cause status; G89.29 Other chronic pain; F10.239 Alcohol dependence with withdrawal, unspecified; R56.9 Unspecified convulsions; F32.9 Major depressive disorder, single episode, unspecified; F17.200 Nicotine dependence, unspecified, uncomplicated; Z79.899 Other long term (current) drug therapy; Z88.5 Allergy status to narcotic agent

== ENCOUNTER 2017-07-08 14:56 | Emergency (ER) | payer MEDICAID, SELFPAY ==
[2017-07-08] MEDS: OXAZEPAM 15 MG CAP PO (16:35)
[2017-07-08 16:36] LABS: HEMATOCRIT 45.5 % (42.0-52.0); HEMOGLOBIN 15.4 g/dl (14.0-18.0); MEAN CORPUSCULAR HEMOGLOBIN 30.4 pg (27.0-33.0); MEAN CORPUSCULAR HGB CONC 33.8 g/dl (32.0-36.5); MEAN CORPUSCULAR VOLUME 89.9 fl (80.0-96.0); PLATELET COUNT, AUTOMATED 389 10^3/uL (150-450); RED BLOOD COUNT 5.06 10^6/uL (4.30-6.10); WHITE BLOOD COUNT 11.7 10^3/uL (4.0-10.0)
[2017-07-08 16:59] LABS: AMPHETAMINES LEVEL URINE NEGATIVE (NEGATIVE); BARBITURATES URINE NEGATIVE (NEGATIVE); BENZODIAZEPINES URINE NEGATIVE (NEGATIVE); CANNABINOIDS URINE NEGATIVE (NEGATIVE); COCAINE METABOLITE URINE NEGATIVE (NEGATIVE); METHADONE URINE NEGATIVE (NEGATIVE); OPIATES URINE NEGATIVE (NEGATIVE); PHENCYCLIDINE URINE NEGATIVE (NEGATIVE)
[2017-07-08 17:08] LABS: ALBUMIN 3.1 GM/DL (3.2-5.2); ALBUMIN/GLOBULIN RATIO 0.58 (1.00-1.93); ALKALINE PHOSPHATASE 123 U/L (45-117); ALT/SGPT 14 U/L (12-78); ANION GAP 9 MEQ/L (8-16); AST/SGOT 29 U/L (7-37); BILIRUBIN,DIRECT 0.1 MG/DL (0.0-0.2); BILIRUBIN,TOTAL 0.3 MG/DL (0.2-1.0); BLOOD UREA NITROGEN 3 MG/DL (7-18); CALCIUM LEVEL 8.2 MG/DL (8.5-10.1); CARBON DIOXIDE LEVEL 27 MEQ/L (21-32); CHLORIDE LEVEL 103 MEQ/L (98-107); CREATININE FOR GFR 0.49 MG/DL (0.70-1.30); ETHYL ALCOHOL (ETHANOL) 0.302 % (0.000-0.010); GLOMERULAR FILTRATION RATE > 60.0 (>60); GLUCOSE, FASTING 103 MG/DL (70-100); POTASSIUM SERUM 4.2 MEQ/L (3.5-5.1); SODIUM LEVEL 139 MEQ/L (136-145); THYROID STIMULATING HORMONE 0.078 uIU/ML (0.358-3.740); TOTAL PROTEIN 8.4 GM/DL (6.4-8.2)
[2017-07-08 17:16] LABS: ACETAMINOPHEN LEVEL < 2.0 UG/ML (10.0-30.0)
== END 2017-07-09 06:41 | disposition home or self-care (01) ==
LOC: M ED 07-09 06:41
DX: F10.10 Alcohol abuse, uncomplicated (principal); R45.851 Suicidal ideations; R91.8 Other nonspecific abnormal finding of lung field; F32.9 Major depressive disorder, single episode, unspecified; F43.10 Post-traumatic stress disorder, unspecified; F17.200 Nicotine dependence, unspecified, uncomplicated; Z79.899 Other long term (current) drug therapy; Z88.5 Allergy status to narcotic agent
CPT/HCPCS: 71101

== ENCOUNTER 2017-07-23 09:41 | Day surgery (SDC) | payer MEDICAID ==
[2017-07-23] MEDS ORDERED: LR 1,000 ML IV ×9 (10:00→12:45)
[2017-07-23] MEDS: THROMBIN SOLN 5,000 UNITS VIAL As Ordered ×3 (10:00)
[2017-07-23] MEDS: EPINEPHrine 1MG/10ML SYRINGE 1.5IN As Ordered ×3 (10:01)
[2017-07-23] MEDS: LIDOCAINE 1% SDV INJ 30 ML VIAL As Ordered ×3 (10:01)
[2017-07-23] MEDS: LIDOCAINE VISCOUS 2% SOLN 15ML UDC As Ordered ×3 (10:01)
[2017-07-23] MEDS ORDERED: D5W 1,000 ML IV ×3 (10:30)
[2017-07-23] MEDS ORDERED: LIDOCAINE 4% INJ 5 ML AMP NEB ×3 (10:30)
[2017-07-23] MEDS ORDERED: ALBUTEROL SULFATE 2.5 MG/0.5 ML INH NEB SOLN INH ×3 (10:30)
[2017-07-23] MEDS ORDERED: dexameTHASONE 4 MG/ML 1ML VIAL (J1100) As Ordered ×3 (11:18)
[2017-07-23] MEDS ORDERED: MIDAZOLAM INJ 2 MG/2 ML VIAL (J2250) As Ordered ×3 (11:19)
[2017-07-23] MEDS ORDERED: ROCURONIUM BROMIDE 50 MG/5 ML VIAL As Ordered ×3 (11:19)
[2017-07-23] MEDS ORDERED: fentaNYL 100 MCG/2 ML INJECTION (J3010) As Ordered ×3 (11:19)
[2017-07-23] MEDS ORDERED: LIDOCAINE 2% INJ 100 MG/5 ML SDV (FOR ANES.) As Ordered ×3 (11:19)
[2017-07-23] MEDS ORDERED: GLYCOPYRROLATE INJ 0.2 MG/ML 2 ML VIAL As Ordered ×6 (11:19→11:39)
[2017-07-23] MEDS ORDERED: PROPOFOL 200 MG/20 ML VIAL As Ordered ×3 (11:19)
[2017-07-23] MEDS ORDERED: PHENYLephrine HCL 500 MCG/5 ML (100MCG/ML) SYRINGE (J2370) As Ordered ×3 (11:25)
[2017-07-23] MEDS ORDERED: ONDANSETRON 4MG/2ML VIAL (J2405) As Ordered ×3 (11:26)
[2017-07-23] MEDS: CETACAINE SPRAY 5GM As Ordered ×3 (11:27)
[2017-07-23] MEDS ORDERED: NEOSTIGMINE 10 MG/10 ML VIAL (J2710) As Ordered ×3 (11:38)
[2017-07-23] MEDS ORDERED: ONDANSETRON 4MG/2ML VIAL (J2405) IV ×3 (12:45)
[2017-07-23] MEDS ORDERED: fentaNYL 100 MCG/2 ML INJECTION (J3010) IV ×3 (12:45)
[2017-07-23] MEDS ORDERED: LEVALBUTEROL 1.25 MG/0.5 ML CONCENTRATE NEB As Ordered ×3 (12:50)
[2017-07-23] MEDS: LEVALBUTEROL 1.25 MG/0.5 ML CONCENTRATE NEB INH ×3 (13:04)
== END 2017-07-23 14:25 | disposition home or self-care (01) ==
LOC: M ADMPAT 09:41 → M SDC 14:25
DX: C34.12 Malignant neoplasm of upper lobe, left bronchus or lung (principal); C77.9 Secondary and unspecified malignant neoplasm of lymph node, unspecified; F41.9 Anxiety disorder, unspecified; F43.10 Post-traumatic stress disorder, unspecified; F32.9 Major depressive disorder, single episode, unspecified; R56.9 Unspecified convulsions; J45.909 Unspecified asthma, uncomplicated; F17.210 Nicotine dependence, cigarettes, uncomplicated; Z79.899 Other long term (current) drug therapy
CPT/HCPCS: 31623

== ENCOUNTER → 2017-08-02 | Outpatient (CLI) | payer OTHER | LOC: M SLEEP 10:24 | DX: C34.12 Malignant neoplasm of upper lobe, left bronchus or lung (principal) | CPT/HCPCS: 94060 ==

== ENCOUNTER 2017-08-16 09:59 | Outpatient (RCR) | payer OTHER | END 2017-08-27 | LOC: M ONCR 09:59 | DX: C34.12 Malignant neoplasm of upper lobe, left bronchus or lung (principal) | CPT/HCPCS: 77300 ==

== ENCOUNTER → 2017-10-24 | Outpatient (REF) | payer OTHER ==
[2017-10-24 13:05] LABS: REASON FOR REVIEW PLATELET MORPHOLOGY; SLIDE REVIEW Report; SOURCE PERIPHERAL SMEAR
[2017-10-24 13:13] LABS: MAGNESIUM LEVEL 1.1 MG/DL (1.8-2.4)
== END ==
LOC: M LAB REF 11:41
DX: C34.92 Malignant neoplasm of unspecified part of left bronchus or lung (principal); C77.1 Secondary and unspecified malignant neoplasm of intrathoracic lymph nodes
CPT/HCPCS: 83735

== ENCOUNTER → 2017-11-06 | Outpatient (CLI) | payer OTHER | LOC: M RAD 14:51 | DX: C34.12 Malignant neoplasm of upper lobe, left bronchus or lung (principal) | CPT/HCPCS: 71250 ==

== ENCOUNTER → 2017-11-14 | Outpatient (REF) | payer OTHER ==
[2017-11-14 14:48] LABS: MAGNESIUM LEVEL 0.7 MG/DL (1.8-2.4)
== END ==
LOC: M LAB REF 13:47
DX: C77.1 Secondary and unspecified malignant neoplasm of intrathoracic lymph nodes (principal); C34.92 Malignant neoplasm of unspecified part of left bronchus or lung
CPT/HCPCS: 83735

== ENCOUNTER 2017-11-23 16:06 | Inpatient (IN) | payer OTHER ==
[2017-11-23] MEDS: VANCOMYCIN HCL 1,000 MG, VIAL MATE ADAPTER 1 EACH in D5W 250 ML IV (01:00)
[2017-11-23] MEDS: NS 1,000 ML IV (16:30)
[2017-11-23 16:44] LABS: VENOUS BASE EXCESS 4.3 (-2.0-2.0); VENOUS HCO3 32.2 MEQ/L (23.0-27.0); VENOUS O2 SATURATION 60.6 % (60.0-80.0); VENOUS PARTIAL PRESSURE CO2 67.6 mmHg (38.0-50.0); VENOUS PARTIAL PRESSURE O2 41.8 mmHg (30.0-50.0); VENOUS PH 7.296 UNITS (7.330-7.430); VENOUS STANDARD HCO3 27.6 MEQ/L; VENOUS TOTAL CO2 34.3 MEQ/L (24.0-28.0)
[2017-11-23 16:46] LABS: BEDSIDE GLUCOSE 171 MG/DL (70-105)
[2017-11-23 17:00] LABS: HEMATOCRIT 28.4 % (42.0-52.0); HEMOGLOBIN 9.9 g/dl (13.5-17.5); MEAN CORPUSCULAR HEMOGLOBIN 32.9 pg (27.0-33.0); MEAN CORPUSCULAR HGB CONC 34.9 g/dl (32.0-36.5); MEAN CORPUSCULAR VOLUME 94.4 fl (80.0-96.0); PLATELET COUNT, AUTOMATED 311 10^3/uL (150-450); RED BLOOD COUNT 3.01 10^6/uL (4.30-6.10); RED CELL DISTRIBUTION WIDTH 17.1 % (11.5-14.5)
[2017-11-23 17:07] LABS: AMMONIA 30 uMOL/L (<32)
[2017-11-23 17:16] LABS: ADD MANUAL DIFFER YES; DIFF SLIDE NUMBER 320; POS COUNT POS FLAG; POSITIVE DIFF POS FLAG; POSITIVE MORPH POS FLAG; WHITE BLOOD COUNT 36.6 10^3/uL (4.0-10.0)
[2017-11-23 17:26] LABS: KETONE, URINE AUTO RFX TRACE mg/dL (NEGATIVE); LEUKOCYTE ESTERASE UR AUTO RFX NEGATIVE (NEGATIVE); NITRITE, URINE AUTO RFX NEGATIVE (NEGATIVE); RBC, URINE AUTO RFX 2 /HPF (0-3); SQUAM EPITHELIAL CELL UR AURFX 0 /HPF (0-6); WBC, URINE AUTO RFX 3 /HPF (0-3)
[2017-11-23 17:28] LABS: LACTIC ACID SEPSIS PROTOCOL 2.6 MMOL/L (0.4-2.0)
[2017-11-23 17:29] LABS: AMPHETAMINES LEVEL URINE NEGATIVE (NEGATIVE); BARBITURATES URINE NEGATIVE (NEGATIVE); BENZODIAZEPINES URINE NEGATIVE (NEGATIVE); CANNABINOIDS URINE NEGATIVE (NEGATIVE); COCAINE METABOLITE URINE NEGATIVE (NEGATIVE); METHADONE URINE NEGATIVE (NEGATIVE); OPIATES URINE NEGATIVE (NEGATIVE); PHENCYCLIDINE URINE NEGATIVE (NEGATIVE)
[2017-11-23 17:33] LABS: BLAST CELLS 1 % (0-0); EOSINOPHILS 1 % (0-5); LYMPHOCYTES 7 % (16-52); MONOCYTES 3 % (0-8); NEUTROPHILS 84 % (35-75)
[2017-11-23 17:35] LABS: ANISOCYTOSIS 2+; BANDS 0 % (< 11); METAMYELOCYTES 2 % (0-0); MYELOCYTES 2 % (0-0); PLATELET ESTIMATE NORMAL (NORMAL); PROMYELOCYTES 0 % (0-0)
[2017-11-23 17:36] LABS: HYPOCHROMASIA 1+; POLYCHROMASIA 1+
[2017-11-23 18:01] LABS: ACETAMINOPHEN LEVEL < 2.0 UG/ML (10.0-30.0); ALBUMIN 1.7 GM/DL (3.2-5.2); ALBUMIN/GLOBULIN RATIO 0.34 (1.00-1.93); ALKALINE PHOSPHATASE 164 U/L (45-117); ALT/SGPT 61 U/L (12-78); ANION GAP 11 MEQ/L (8-16); AST/SGOT 189 U/L (7-37); BILIRUBIN,DIRECT 0.3 MG/DL (0.0-0.2); BILIRUBIN,TOTAL 0.5 MG/DL (0.2-1.0); BLOOD UREA NITROGEN 4 MG/DL (7-18); CALCIUM LEVEL 6.9 MG/DL (8.5-10.1); CARBON DIOXIDE LEVEL 32 MEQ/L (21-32); CHLORIDE LEVEL 73 MEQ/L (98-107); CPK CREATINE PHOSPHOKINASE 68 U/L (39-308); CREATININE FOR GFR 0.37 MG/DL (0.70-1.30); GLOMERULAR FILTRATION RATE > 60.0 (>60); GLUCOSE, FASTING 125 MG/DL (70-100); SALICYLATE LEVEL < 1.7 MG/DL (5.0-30.0); SODIUM LEVEL 116 MEQ/L (136-145); TOTAL PROTEIN 6.7 GM/DL (6.4-8.2); TROPONIN I 0.02 NG/ML (< 0.10)
[2017-11-23 18:06] LABS: CK-MB VALUE MASS 2.3 NG/ML (<3.6); MB/CK RELATIVE INDEX 3.38 (< OR =4)
[2017-11-23 18:07] LABS: THYROID STIMULATING HORMONE 0.582 uIU/ML (0.358-3.740)
[2017-11-23 18:16] LABS: OSMOLALITY SERUM 321 MOSM/KG (275-295)
[2017-11-23 18:18] LABS: ETHYL ALCOHOL (ETHANOL) 0.328 % (0.000-0.010)
[2017-11-23] MEDS: PIPERACILLIN/TAZOBACTAM SOD 3.375 GM in D5W MINI-BAG PLUS 50 ML IV (19:30)
[2017-11-23] MEDS ORDERED: NS 1,000 ML IV (19:45)
[2017-11-23] MEDS: MULTIVITAMIN -ADULT INJECTION 10 ML, THIAMINE INJection 100 MG, FOLIC ACID 1 MG in NS 1... IV (20:06)
[2017-11-23] MEDS ORDERED: PROCHLORPERAZINE 5 MG TAB (S0183) PO (22:15)
[2017-11-23] MEDS ORDERED: ACETAMINOPHEN TAB 650MG DOSE (2X325MG) PO (22:15)
[2017-11-23] MEDS ORDERED: ONDANSETRON 4 MG TAB (S0181) PO (22:15)
[2017-11-23 23:08] LABS: ANION GAP 8 MEQ/L (8-16); BLOOD UREA NITROGEN 3 MG/DL (7-18); CALCIUM LEVEL 6.9 MG/DL (8.5-10.1); CARBON DIOXIDE LEVEL 33 MEQ/L (21-32); CHLORIDE LEVEL 73 MEQ/L (98-107); CREATININE FOR GFR 0.36 MG/DL (0.70-1.30); GLOMERULAR FILTRATION RATE > 60.0 (>60); GLUCOSE, FASTING 120 MG/DL (70-100); POTASSIUM SERUM 3.9 MEQ/L (3.5-5.1); SODIUM LEVEL 114 MEQ/L (136-145)
[2017-11-23] MEDS ORDERED: ISOVUE-370 76% 100ML VIAL (Q9967) As Ordered (23:30)
[2017-11-24] MEDS: PERCOCET 5MG/325MG TAB PO (01:49)
[2017-11-24 02:08] LABS: MAGNESIUM LEVEL 0.8 MG/DL (1.8-2.4)
[2017-11-24] MEDS: PIPERACILLIN/TAZOBACTAM SOD 3.375 GM in D5W MINI-BAG PLUS 50 ML IV ×4 (02:36→20:12)
[2017-11-24] MEDS: LORazepam 2 MG/ML VIAL (J2060) IV (03:01)
[2017-11-24] MEDS: MAG SULF 1GM/100ML (MAG RUN) 1 GM in APPROPRIATE DILUENT 1 EA IV ×5 (03:44→22:31)
[2017-11-24 04:58] LABS: ABG BASE EXCESS -1.1 (-2.0-2.0); ABG HCO3 30.4 MEQ/L (22.0-26.0); ABG O2 SATURATION 99.7 % (95.0-99.0); ABG PARTIAL PRESSURE O2 220.9 mmHg (75.0-100.0); ABG STANDARD HCO3 23.6 MEQ/L (22.0-26.0); ABG TOTAL CO2 33.5 MEQ/L (22.0-29.0)
[2017-11-24 05:01] LABS: ABG pH (ARTERIAL) 7.092 UNITS (7.350-7.450)
[2017-11-24 05:02] LABS: ABG PARTIAL PRESSURE CO2 101.9 mmHg (35.0-45.0)
[2017-11-24 05:04] LABS: HEMATOCRIT 26.6 % (42.0-52.0); HEMOGLOBIN 9.3 g/dl (13.5-17.5); MEAN CORPUSCULAR HEMOGLOBIN 33.1 pg (27.0-33.0); MEAN CORPUSCULAR VOLUME 94.7 fl (80.0-96.0); PLATELET COUNT, AUTOMATED 299 10^3/uL (150-450); RED BLOOD COUNT 2.81 10^6/uL (4.30-6.10); RED CELL DISTRIBUTION WIDTH 16.6 % (11.5-14.5)
[2017-11-24 05:29] LABS: ANION GAP 7 MEQ/L (8-16); BLOOD UREA NITROGEN 2 MG/DL (7-18); CALCIUM LEVEL 7.1 MG/DL (8.5-10.1); CARBON DIOXIDE LEVEL 37 MEQ/L (21-32); CHLORIDE LEVEL 76 MEQ/L (98-107); CREATININE FOR GFR 0.33 MG/DL (0.70-1.30); GLOMERULAR FILTRATION RATE > 60.0 (>60); GLUCOSE, FASTING 192 MG/DL (70-100); POTASSIUM SERUM 3.8 MEQ/L (3.5-5.1); SODIUM LEVEL 120 MEQ/L (136-145)
[2017-11-24] MEDS ORDERED: MIDAZOLAM INJ 2 MG/2 ML VIAL (J2250) As Ordered ×2 (05:29→05:30)
[2017-11-24 05:33] LABS: ADD MANUAL DIFFER YES; DIFF SLIDE NUMBER 83; POS COUNT POS FLAG; POSITIVE DIFF POS FLAG; POSITIVE MORPH POS FLAG
[2017-11-24 05:34] LABS: WHITE BLOOD COUNT 46.2 10^3/uL (4.0-10.0)
[2017-11-24 05:37] LABS: BANDS 2 % (< 11); BASOPHILS 2 % (0-4); LYMPHOCYTES 1 % (16-52); METAMYELOCYTES 1 % (0-0); MONOCYTES 3 % (0-8); NEUTROPHILS 91 % (35-75)
[2017-11-24 05:38] LABS: ANISOCYTOSIS 1+
[2017-11-24 05:39] LABS: GIANT PLATELETS 1+
[2017-11-24 05:40] LABS: PLATELET ESTIMATE NORMAL (NORMAL); POLYCHROMASIA 1+
[2017-11-24 05:48] LABS: MAGNESIUM LEVEL 1.5 MG/DL (1.8-2.4)
[2017-11-24 06:46] LABS: CK-MB VALUE MASS 2.8 NG/ML (<3.6); CPK CREATINE PHOSPHOKINASE 62 U/L (39-308); MB/CK RELATIVE INDEX 4.51 (< OR =4); NT-PRO BNP 6760 PG/ML (<125); TROPONIN I < 0.02 NG/ML (< 0.10)
[2017-11-24] MEDS: MIDAZOLAM INJ 2 MG/2 ML VIAL (J2250) IV ×10 (06:53→22:20)
[2017-11-24] MEDS: NS 1,000 ML IV ×2 (06:55→07:15)
[2017-11-24] MEDS: VANCOMYCIN HCL 1,000 MG, VIAL MATE ADAPTER 1 EACH in D5W 250 ML IV ×3 (06:55→22:20)
[2017-11-24 07:00] LABS: ABG BASE EXCESS 8.4 (-2.0-2.0); ABG HCO3 33.8 MEQ/L (22.0-26.0); ABG O2 SATURATION 99.7 % (95.0-99.0); ABG PARTIAL PRESSURE CO2 51.7 mmHg (35.0-45.0); ABG PARTIAL PRESSURE O2 145.9 mmHg (75.0-100.0); ABG STANDARD HCO3 32.2 MEQ/L (22.0-26.0); ABG TOTAL CO2 35.4 MEQ/L (22.0-29.0); ABG pH (ARTERIAL) 7.433 UNITS (7.350-7.450)
[2017-11-24] MEDS: PANTOPRAZOLE 40MG INJ (PROTONIX) (C9113) IV (07:00)
[2017-11-24] MEDS: PROPOFOL 1,000 MG in APPROPRIATE DILUENT 1 EA IV ×4 (07:23→17:00)
[2017-11-24 08:37] LABS: IONIZED CALCIUM 3.9 MG/DL (4.5-5.3)
[2017-11-24 08:54] LABS: SODIUM,RANDOM URINE 12 MEQ/L
[2017-11-24] MEDS ORDERED: FOLIC ACID 1 MG TAB PO (09:00)
[2017-11-24] MEDS ORDERED: MULTIVITAMINS/MINERALS THERAP 1 TAB PO (09:00)
[2017-11-24] MEDS ORDERED: PANTOPRAZOLE 40MG TAB (PROTONIX) PO (09:00)
[2017-11-24] MEDS ORDERED: levETIRAcetam 250MG TABLET (KEPPRA) PO (09:00)
[2017-11-24] MEDS ORDERED: THIAMINE 100 MG TAB PO (09:00)
[2017-11-24 09:15] LABS: OSMOLALITY URINE 141 MOSM/KG (500-800)
[2017-11-24 09:16] LABS: OSMOLALITY SERUM 282 MOSM/KG (275-295)
[2017-11-24] MEDS: FOLIC ACID 1 MG in NS 50 ML IV (10:02)
[2017-11-24] MEDS: CHLORHEXIDINE ORAL RINSE 0.12%/15ML 120ML BOTTLE MT ×3 (10:03→20:12)
[2017-11-24] MEDS: THIAMINE HCL 200 MG/2 ML VIAL (J3411) IV (10:03)
[2017-11-24] MEDS: levETIRAcetam INJection 500 MG in D5W MINI-BAG PLUS 100 ML IV ×2 (10:03→21:10)
[2017-11-24] MEDS: ENOXAPARIN 40 MG/0.4 ML SYRINGE (J1650) SC (10:04)
[2017-11-24 11:05] LABS: ALBUMIN 1.6 GM/DL (3.2-5.2); ANION GAP 8 MEQ/L (8-16); BLOOD UREA NITROGEN 2 MG/DL (7-18); CALCIUM LEVEL 7.2 MG/DL (8.5-10.1); CARBON DIOXIDE LEVEL 36 MEQ/L (21-32); CHLORIDE LEVEL 77 MEQ/L (98-107); CREATININE FOR GFR 0.29 MG/DL (0.70-1.30); GLOMERULAR FILTRATION RATE > 60.0 (>60); GLUCOSE, FASTING 134 MG/DL (70-100); PHOSPHORUS LEVEL 2.2 MG/DL (2.5-4.9); POTASSIUM SERUM 3.4 MEQ/L (3.5-5.1); SODIUM LEVEL 121 MEQ/L (136-145)
[2017-11-24] MEDS: CALCIUM GLUCONATE 1,000 MG in NS 100 ML IV (11:29)
[2017-11-24 12:08] LABS: BEDSIDE GLUCOSE 88 MG/DL (70-105)
[2017-11-24 12:40] LABS: SODIUM,RANDOM URINE 12 MEQ/L
[2017-11-24 12:40] LABS: OSMOLALITY URINE 141 MOSM/KG (500-800)
[2017-11-24 12:47] LABS: ANION GAP 10 MEQ/L (8-16); BLOOD UREA NITROGEN < 1 MG/DL (7-18); CALCIUM LEVEL 7.4 MG/DL (8.5-10.1); CARBON DIOXIDE LEVEL 36 MEQ/L (21-32); CHLORIDE LEVEL 79 MEQ/L (98-107); CREATININE FOR GFR 0.24 MG/DL (0.70-1.30); GLOMERULAR FILTRATION RATE > 60.0 (>60); GLUCOSE, FASTING 77 MG/DL (70-100); MAGNESIUM LEVEL 1.1 MG/DL (1.8-2.4); SODIUM LEVEL 125 MEQ/L (136-145)
[2017-11-24] MEDS: POTASSIUM CHLORIDE 10% LIQ 20 MEQ/15 ML UDC NG (14:06)
[2017-11-24] MEDS: KCL 20MEQ IN 100ML SWI (KRUN) 20 MEQ in APPROPRIATE DILUENT 1 EA IV (14:39)
[2017-11-24] MEDS: POTASSIUM CHLORIDE INJ 40 MEQ in D5W 1,000 ML IV (17:05)
[2017-11-24 17:47] LABS: BEDSIDE GLUCOSE 116 MG/DL (70-105)
[2017-11-24 18:19] LABS: OSMOLALITY URINE 134 MOSM/KG (500-800)
[2017-11-24 18:30] LABS: ANION GAP 11 MEQ/L (8-16); BLOOD UREA NITROGEN 2 MG/DL (7-18); CALCIUM LEVEL 7.5 MG/DL (8.5-10.1); CARBON DIOXIDE LEVEL 34 MEQ/L (21-32); CHLORIDE LEVEL 81 MEQ/L (98-107); CREATININE FOR GFR 0.37 MG/DL (0.70-1.30); GLUCOSE, FASTING 94 MG/DL (70-100); POTASSIUM SERUM 3.5 MEQ/L (3.5-5.1); SODIUM LEVEL 126 MEQ/L (136-145)
[2017-11-24 18:44] LABS: SODIUM,RANDOM URINE 15 MEQ/L
[2017-11-24 18:51] LABS: GLOMERULAR FILTRATION RATE > 60.0 (>60)
[2017-11-24 19:51] LABS: MAGNESIUM LEVEL 1.1 MG/DL (1.8-2.4)
[2017-11-24 21:59] LABS: VANCOMYCIN LEVEL TROUGH 13.5 UG/ML (10.0-20.0)
[2017-11-25] MEDS: POTASSIUM CHLORIDE INJ 40 MEQ in D5W 1,000 ML IV (00:10)
[2017-11-25] MEDS: MIDAZOLAM INJ 2 MG/2 ML VIAL (J2250) IV ×3 (00:23→07:54)
[2017-11-25 00:46] LABS: SODIUM,RANDOM URINE 14 MEQ/L
[2017-11-25 00:47] LABS: ANION GAP 8 MEQ/L (8-16); BLOOD UREA NITROGEN 1 MG/DL (7-18); CALCIUM LEVEL 7.5 MG/DL (8.5-10.1); CARBON DIOXIDE LEVEL 35 MEQ/L (21-32); CHLORIDE LEVEL 83 MEQ/L (98-107); CREATININE FOR GFR 0.47 MG/DL (0.70-1.30); GLOMERULAR FILTRATION RATE > 60.0 (>60); GLUCOSE, FASTING 142 MG/DL (70-100); MAGNESIUM LEVEL 1.5 MG/DL (1.8-2.4); POTASSIUM SERUM 3.5 MEQ/L (3.5-5.1); SODIUM LEVEL 126 MEQ/L (136-145)
[2017-11-25 00:52] LABS: OSMOLALITY URINE 105 MOSM/KG (500-800)
[2017-11-25] MEDS: PIPERACILLIN/TAZOBACTAM SOD 3.375 GM in D5W MINI-BAG PLUS 50 ML IV ×4 (02:17→20:23)
[2017-11-25] MEDS: VANCOMYCIN HCL 1,000 MG, VIAL MATE ADAPTER 1 EACH in D5W 250 ML IV ×3 (05:41→22:34)
[2017-11-25 05:44] LABS: ABG HCO3 33.8 MEQ/L (22.0-26.0); ABG O2 SATURATION 99.6 % (95.0-99.0); ABG PARTIAL PRESSURE CO2 32.8 mmHg (35.0-45.0); ABG PARTIAL PRESSURE O2 119.4 mmHg (75.0-100.0); ABG STANDARD HCO3 35.7 MEQ/L (22.0-26.0); ABG TOTAL CO2 34.8 MEQ/L (22.0-29.0)
[2017-11-25 05:45] LABS: ABG pH (ARTERIAL) 7.631 UNITS (7.350-7.450)
[2017-11-25 06:11] LABS: HEMATOCRIT 22.6 % (42.0-52.0); HEMOGLOBIN 7.9 g/dl (13.5-17.5); MEAN CORPUSCULAR HEMOGLOBIN 32.6 pg (27.0-33.0); MEAN CORPUSCULAR VOLUME 93.4 fl (80.0-96.0); PLATELET COUNT, AUTOMATED 256 10^3/uL (150-450); RED BLOOD COUNT 2.42 10^6/uL (4.30-6.10); RED CELL DISTRIBUTION WIDTH 17.3 % (11.5-14.5)
[2017-11-25 06:21] LABS: OSMOLALITY URINE 72 MOSM/KG (500-800)
[2017-11-25 06:31] LABS: SODIUM,RANDOM URINE 11 MEQ/L
[2017-11-25 06:40] LABS: ALBUMIN 1.4 GM/DL (3.2-5.2); ALKALINE PHOSPHATASE 144 U/L (45-117); ALT/SGPT 36 U/L (12-78); ANION GAP 9 MEQ/L (8-16); AST/SGOT 69 U/L (7-37); BILIRUBIN,TOTAL 1.1 MG/DL (0.2-1.0); BLOOD UREA NITROGEN 2 MG/DL (7-18); CALCIUM LEVEL 7.6 MG/DL (8.5-10.1); CARBON DIOXIDE LEVEL 34 MEQ/L (21-32); CHLORIDE LEVEL 84 MEQ/L (98-107); CHOLESTEROL LEVEL 87 MG/DL (< 200); CPK CREATINE PHOSPHOKINASE 23 U/L (39-308); CREATININE FOR GFR 0.46 MG/DL (0.70-1.30); GLOMERULAR FILTRATION RATE > 60.0 (>60); GLUCOSE, FASTING 98 MG/DL (70-100); LDH LACTATE DEHYDROGENASE 457 U/L (87-241); MAGNESIUM LEVEL 1.4 MG/DL (1.8-2.4); PHOSPHORUS LEVEL 0.7 MG/DL (2.5-4.9); POTASSIUM SERUM 3.6 MEQ/L (3.5-5.1); SODIUM LEVEL 127 MEQ/L (136-145); TOTAL PROTEIN 6.1 GM/DL (6.4-8.2); TRIGLYCERIDES LEVEL 61 MG/DL (<150)
[2017-11-25 06:56] LABS: ADD MANUAL DIFFER YES; DIFF SLIDE NUMBER 62; POS COUNT POS FLAG; POSITIVE DIFF POS FLAG; WHITE BLOOD COUNT 32.2 10^3/uL (4.0-10.0)
[2017-11-25 06:58] LABS: ANISOCYTOSIS 1+; ATYPICAL LYMPH 1 % (0-5); BANDS 3 % (< 11); EOSINOPHILS 1 % (0-5); LYMPHOCYTES 6 % (16-52); MONOCYTES 4 % (0-8); MYELOCYTES 1 % (0-0); NEUTROPHILS 84 % (35-75); PLATELET ESTIMATE NORMAL (NORMAL)
[2017-11-25 06:59] LABS: POLYCHROMASIA 1+
[2017-11-25] MEDS: PROPOFOL 1,000 MG in APPROPRIATE DILUENT 1 EA IV (07:51)
[2017-11-25] MEDS: CHLORHEXIDINE ORAL RINSE 0.12%/15ML 120ML BOTTLE MT (09:17)
[2017-11-25] MEDS: PANTOPRAZOLE 40MG INJ (PROTONIX) (C9113) IV (09:17)
[2017-11-25] MEDS: levETIRAcetam INJection 500 MG in D5W MINI-BAG PLUS 100 ML IV ×2 (09:18→21:01)
[2017-11-25] MEDS: THIAMINE HCL 200 MG/2 ML VIAL (J3411) IV (09:18)
[2017-11-25] MEDS: FOLIC ACID 1 MG in NS 50 ML IV (09:19)
[2017-11-25] MEDS: ENOXAPARIN 40 MG/0.4 ML SYRINGE (J1650) SC (09:19)
[2017-11-25] MEDS: MAG SULF 1GM/100ML (MAG RUN) 1 GM in APPROPRIATE DILUENT 1 EA IV ×2 (10:00→21:02)
[2017-11-25] MEDS: NS 250 ML IV (11:45)
[2017-11-25] MEDS: POTASSIUM PHOSPHATE INJ 15 MMOL in D5W 250 ML IV (12:23)
[2017-11-25 13:07] LABS: OSMOLALITY URINE 56 MOSM/KG (500-800)
[2017-11-25 13:09] LABS: SODIUM,RANDOM URINE 14 MEQ/L
[2017-11-25 13:15] LABS: ANION GAP 9 MEQ/L (8-16); BLOOD UREA NITROGEN 2 MG/DL (7-18); CALCIUM LEVEL 7.1 MG/DL (8.5-10.1); CARBON DIOXIDE LEVEL 33 MEQ/L (21-32); CHLORIDE LEVEL 92 MEQ/L (98-107); CREATININE FOR GFR 0.35 MG/DL (0.70-1.30); GLOMERULAR FILTRATION RATE > 60.0 (>60); GLUCOSE, FASTING 113 MG/DL (70-100); POTASSIUM SERUM 2.9 MEQ/L (3.5-5.1); SODIUM LEVEL 134 MEQ/L (136-145)
[2017-11-25] MEDS: POTASSIUM CHLORIDE 10% LIQ 20 MEQ/15 ML UDC PO (15:06)
[2017-11-25] MEDS: KCL 20MEQ IN 100ML SWI (KRUN) 20 MEQ in APPROPRIATE DILUENT 1 EA IV (15:07)
[2017-11-25] MEDS ORDERED: KCL 20MEQ IN D5/0.45NS 1000ML 1,000 ML IV (15:30)
[2017-11-25 18:28] LABS: ALBUMIN 1.6 GM/DL (3.2-5.2); ANION GAP 8 MEQ/L (8-16); BLOOD UREA NITROGEN 2 MG/DL (7-18); CALCIUM LEVEL 7.9 MG/DL (8.5-10.1); CARBON DIOXIDE LEVEL 33 MEQ/L (21-32); CHLORIDE LEVEL 91 MEQ/L (98-107); CREATININE FOR GFR 0.44 MG/DL (0.70-1.30); GLOMERULAR FILTRATION RATE > 60.0 (>60); GLUCOSE, FASTING 93 MG/DL (70-100); MAGNESIUM LEVEL 1.3 MG/DL (1.8-2.4); PHOSPHORUS LEVEL 2.2 MG/DL (2.5-4.9); POTASSIUM SERUM 4.1 MEQ/L (3.5-5.1); SODIUM LEVEL 132 MEQ/L (136-145)
[2017-11-25] MEDS ORDERED: IPRATROPIUM 0.5MG/ALBUTEROL 2.5MG INH SOL UD 3ML (DUONEB)(J7620) NEB (19:30)
[2017-11-25] MEDS: IPRATROPIUM 0.5MG/ALBUTEROL 2.5MG INH SOL UD 3ML (DUONEB)(J7620) NEB (19:36)
[2017-11-25] MEDS: FUROSEMIDE 40 MG/4 ML VIAL (J1940) IV (21:02)
[2017-11-25] MEDS ORDERED: LORazepam 2 MG/ML VIAL (J2060) As Ordered (23:56)
[2017-11-25] MEDS ORDERED: MORPHINE 4 MG/ML 1ML VIAL/SYRINGE (J2270) As Ordered (23:57)
[2017-11-26] MEDS: LORazepam 2 MG/ML VIAL (J2060) IV
[2017-11-26] MEDS ORDERED: ACETAMINOPHEN TAB 650MG DOSE (2X325MG) PO
[2017-11-26] MEDS: SCOPOLAMINE 1MG TRANSDERMAL PATCH TOP (00:03)
[2017-11-26] MEDS: MORPHINE 4 MG/ML 1ML VIAL/SYRINGE (J2270) IV (00:03)
[2017-11-26 06:58] LABS: CORTISOL AM 29.2 UG/DL (4.3-22.4)
[2017-11-26 06:59] LABS: PROLACTIN 16.1 NG/ML (2.1-17.7)
== END 2017-11-26 02:57 | disposition expired | DRG 816 ==
LOC: M ICU 22:01 → M ED 16:06 → M ED INP 22:01 → M ICU 23:48
PROVIDERS: Hospitalist
PROC: 02HV33Z Insertion of Infusion Device into Superior Vena Cava, Percutaneous Approach (ICD-10-PCS; principal; 2017-11-24)
PROC: 5A1945Z Respiratory Ventilation, 24-96 Consecutive Hours (ICD-10-PCS; 2017-11-24)
DX: T51.92XA Toxic effect of unspecified alcohol, intentional self-harm, initial encounter (principal); J96.02 Acute respiratory failure with hypercapnia; J69.0 Pneumonitis due to inhalation of food and vomit; A41.9 Sepsis, unspecified organism; G93.41 Metabolic encephalopathy; E43 Unspecified severe protein-calorie malnutrition; J84.10 Pulmonary fibrosis, unspecified; J44.9 Chronic obstructive pulmonary disease, unspecified; I31.3 Pericardial effusion (noninflammatory); C79.89 Secondary malignant neoplasm of other specified sites; E87.1 Hypo-osmolality and hyponatremia; E83.42 Hypomagnesemia; E83.51 Hypocalcemia; E83.39 Other disorders of phosphorus metabolism; C34.12 Malignant neoplasm of upper lobe, left bronchus or lung; Z66 Do not resuscitate; Z51.5 Encounter for palliative care; E87.6 Hypokalemia; F32.9 Major depressive disorder, single episode, unspecified; G40.909 Epilepsy, unspecified, not intractable, without status epilepticus; F43.10 Post-traumatic stress disorder, unspecified; Z88.5 Allergy status to narcotic agent; F10.239 Alcohol dependence with withdrawal, unspecified; Z68.1 Body mass index [BMI] 19.9 or less, adult; Z79.899 Other long term (current) drug therapy